=== PATIENT | male | born 1970 | race Asian ===

== ENCOUNTER → 2016-05-09 | Outpatient (CLI) | payer OTHER ==
[~2016-05-09] MED LIST: ASPI-1093 PO; METO25 PO; METO25TA6 PO; NITR0.4T27 SL; PROP10 PO
[2016-05-09 12:56] LABS: BASOPHILS # (AUTO) 0.02 K/uL (0.00-0.20); BASOPHILS % (AUTO) 0.3 % (0.0-2.0); EOSINOPHILS # (AUTO) 0.21 K/uL (0.00-0.70); EOSINOPHILS % (AUTO) 3.72 % (1.0-6.0); HEMATOCRIT 47.8 % (41-53); LYMPHOCYTES # (AUTO) 1.9 K/uL (1.0-4.8); LYMPHOCYTES % (AUTO) 34.2 % (22.0-44.0); MEAN CORPUSCULAR HEMOGLOBIN 29.8 pg (26.0-34.0); MEAN CORPUSCULAR HGB CONC 33.4 G/dL (31.0-37.0); MEAN CORPUSCULAR VOLUME 89 fL (80-100); MONOCYTES # (AUTO) 0.5 K/uL (0.1-1.0); MONOCYTES % (AUTO) 8.2 % (2.0-9.0); NEUTROPHILS % (AUTO) 53.5 % (40.0-70.0); PLATELET COUNT (AUTO) 268 K/uL (150-450); RED BLOOD CELL COUNT(AUTO) 5.37 MIL/uL (4.50-5.90); RED CELL DISTRIBUTION WIDTH 13.2 % (11.5-14.5); WHITE BLOOD COUNT (AUTO) 5.6 K/uL (4.5-11.0)
[2016-05-09 13:09] LABS: ALBUMIN 4.1 g/dL (3.4-5.0); BILIRUBIN,TOTAL 1.2 mg/dL (0.1-1.0); CALCIUM, TOTAL 9.6 mg/dL (8.8-10.5); CHOL/HDL RATIO 3.4 (4.2-7.3); CREATININE 1.44 mg/dL (0.60-1.30); POTASSIUM 5.2 mmol/L (3.5-5.1); THYROID STIMULATING HORMONE 1.64 uIU/mL (0.36-3.74); TOTAL PROTEIN, SERUM 8.3 g/dL (6.4-8.2)
== END | disposition home or self-care (01) ==
LOC: LABPV 10:06
PROVIDERS: ATTEND Internal Medicine Cardiovascular Disease
DX: E11.8 Type 2 diabetes mellitus with unspecified complications (principal); I11.0 Hypertensive heart disease with heart failure; I50.9 Heart failure, unspecified
CPT/HCPCS: 82306; 83036; 84439; 84443

== ENCOUNTER → 2016-05-19 | Outpatient (CLI) | payer OTHER ==
[2016-05-19 12:14] LABS: ALANINE AMINOTRANSFERASE 32 U/L (12-78); ALBUMIN 3.8 g/dL (3.4-5.0); ANION GAP 5 mmol/L (8-16); ASPARTATE AMINOTRANSFERASE 24 U/L (15-37); CALCIUM, TOTAL 8.5 mg/dL (8.8-10.5); CARBON DIOXIDE 32 mmol/L (22-29); CHLORIDE 105 mmol/L (98-107); CREATININE 1.03 mg/dL (0.60-1.30); GLOMERULAR FILTR. RATE CALC > 60 mL/min (>60); POTASSIUM 4.7 mmol/L (3.5-5.1); SODIUM SERUM 142 mmol/L (136-145); TOTAL PROTEIN, SERUM 7.9 g/dL (6.4-8.2); UREA NITROGEN, BLOOD 9 mg/dL (7-18)
== END | disposition home or self-care (01) ==
LOC: LABPV 11:11
PROVIDERS: ATTEND Internal Medicine Cardiovascular Disease
DX: E11.8 Type 2 diabetes mellitus with unspecified complications (principal); I10 Essential (primary) hypertension; I50.9 Heart failure, unspecified; R73.09 Other abnormal glucose

== ENCOUNTER → 2016-06-23 | Outpatient (CLI) | payer OTHER ==
[~2016-06-23] MED LIST changes: -METO25 PO; -PROP10 PO
[2016-06-23 09:52] LABS: BASOPHILS % (AUTO) 0.3 % (0.0-2.0); EOSINOPHILS % (AUTO) 7.6 % (1.0-6.0); HEMOGLOBIN 15.3 g/dL (13.5-17.5); LYMPHOCYTES # (AUTO) 2.1 K/uL (1.0-4.8); LYMPHOCYTES % (AUTO) 29.6 % (22.0-44.0); MEAN CORPUSCULAR HEMOGLOBIN 29.7 pg (26.0-34.0); MEAN CORPUSCULAR HGB CONC 32.6 G/dL (31.0-37.0); MEAN CORPUSCULAR VOLUME 91 fL (80-100); MONOCYTES # (AUTO) 0.5 K/uL (0.1-1.0); MONOCYTES % (AUTO) 6.7 % (2.0-9.0); NEUTROPHILS # (AUTO) 3.9 K/uL (1.8-7.7); NEUTROPHILS % (AUTO) 55.8 % (40.0-70.0); PLATELET COUNT (AUTO) 214 K/uL (150-450); RED BLOOD CELL COUNT(AUTO) 5.16 MIL/uL (4.50-5.90); RED CELL DISTRIBUTION WIDTH 13.4 % (11.5-14.5)
[2016-06-23 10:11] LABS: PROSTATE SPECIFIC ANTIGEN 1.54 ng/mL (0.00-4.00)
[2016-06-23 10:19] LABS: ALANINE AMINOTRANSFERASE 23 U/L (12-78); ALBUMIN 3.7 g/dL (3.4-5.0); ANION GAP 5 mmol/L (8-16); ASPARTATE AMINOTRANSFERASE 18 U/L (15-37); BILIRUBIN,TOTAL 1.5 mg/dL (0.1-1.0); CALCIUM, TOTAL 8.5 mg/dL (8.8-10.5); CARBON DIOXIDE 31 mmol/L (22-29); CHLORIDE 107 mmol/L (98-107); CREATININE 1.04 mg/dL (0.60-1.30); GLOMERULAR FILTR. RATE CALC > 60 mL/min (>60); POTASSIUM 5.3 mmol/L (3.5-5.1); SODIUM SERUM 143 mmol/L (136-145); THYROID STIMULATING HORMONE 1.02 uIU/mL (0.36-3.74); TOTAL PROTEIN, SERUM 7.7 g/dL (6.4-8.2); UREA NITROGEN, BLOOD 9 mg/dL (7-18)
[2016-06-23 10:38] LABS: HEMOGLOBIN A1C 5.2 % (4.5-6.2)
== END | disposition home or self-care (01) ==
LOC: LABPV 07:09
PROVIDERS: ATTEND Internal Medicine Cardiovascular Disease
DX: I11.0 Hypertensive heart disease with heart failure (principal); I50.9 Heart failure, unspecified; E11.8 Type 2 diabetes mellitus with unspecified complications
CPT/HCPCS: 82306; 83036; 84153; 84439; 84443

== ENCOUNTER → 2016-08-01 | Outpatient (CLI) | payer OTHER ==
[2016-08-01 12:45] LABS: HEMOGLOBIN A1C 5.3 % (4.5-6.2)
[2016-08-01 12:51] LABS: BASOPHILS % (AUTO) 0.6 % (0.0-2.0); EOSINOPHILS % (AUTO) 8.3 % (1.0-6.0); HEMATOCRIT 45.6 % (41-53); HEMOGLOBIN 14.8 g/dL (13.5-17.5); LYMPHOCYTES # (AUTO) 1.9 K/uL (1.0-4.8); LYMPHOCYTES % (AUTO) 35.9 % (22.0-44.0); MEAN CORPUSCULAR HEMOGLOBIN 29.5 pg (26.0-34.0); MEAN CORPUSCULAR HGB CONC 32.4 G/dL (31.0-37.0); MEAN CORPUSCULAR VOLUME 91 fL (80-100); MONOCYTES # (AUTO) 0.4 K/uL (0.1-1.0); MONOCYTES % (AUTO) 6.6 % (2.0-9.0); NEUTROPHILS # (AUTO) 2.6 K/uL (1.8-7.7); NEUTROPHILS % (AUTO) 48.6 % (40.0-70.0); PLATELET COUNT (AUTO) 218 K/uL (150-450); RED CELL DISTRIBUTION WIDTH 13.5 % (11.5-14.5); WHITE BLOOD COUNT (AUTO) 5.4 K/uL (4.5-11.0)
[2016-08-01 13:01] LABS: ALANINE AMINOTRANSFERASE 20 U/L (12-78); ALBUMIN 3.8 g/dL (3.4-5.0); ANION GAP 7 mmol/L (8-16); ASPARTATE AMINOTRANSFERASE 19 U/L (15-37); BILIRUBIN,TOTAL 1.4 mg/dL (0.1-1.0); CALCIUM, TOTAL 8.5 mg/dL (8.8-10.5); CARBON DIOXIDE 29 mmol/L (22-29); CHLORIDE 105 mmol/L (98-107); CHOL/HDL RATIO 3.2 (4.2-7.3); CREATININE 1.14 mg/dL (0.60-1.30); GLOMERULAR FILTR. RATE CALC > 60 mL/min (>60); SODIUM SERUM 141 mmol/L (136-145); THYROID STIMULATING HORMONE 1.34 uIU/mL (0.36-3.74); TOTAL PROTEIN, SERUM 7.6 g/dL (6.4-8.2); UREA NITROGEN, BLOOD 12 mg/dL (7-18)
== END | disposition home or self-care (01) ==
LOC: LABPV 10:12
PROVIDERS: ATTEND Internal Medicine Cardiovascular Disease
DX: I11.0 Hypertensive heart disease with heart failure (principal); I50.9 Heart failure, unspecified; E55.9 Vitamin D deficiency, unspecified; E11.8 Type 2 diabetes mellitus with unspecified complications
CPT/HCPCS: 82306; 83036; 83735; 84439; 84443

== ENCOUNTER 2016-08-16 10:06 | Emergency (ER) | payer OTHER ==
[~2016-08-16] VITALS: Ht 177.8 cm; Wt 73.6 kg
[2016-08-16] MEDS ORDERED: METO25 PO (10:11)
[2016-08-16] MEDS ORDERED: PROP10 PO (10:11)
[2016-08-16 10:49] LABS: BASOPHILS # (AUTO) 0.05 K/uL (0.00-0.20); BASOPHILS % (AUTO) 0.8 % (0.0-2.0); EOSINOPHILS # (AUTO) 0.33 K/uL (0.00-0.70); EOSINOPHILS % (AUTO) 5.84 % (1.0-6.0); HEMATOCRIT 44.4 % (41-53); HEMOGLOBIN 14.6 g/dL (13.5-17.5); LYMPHOCYTES # (AUTO) 2.1 K/uL (1.0-4.8); LYMPHOCYTES % (AUTO) 36.1 % (22.0-44.0); MEAN CORPUSCULAR HEMOGLOBIN 29.7 pg (26.0-34.0); MEAN CORPUSCULAR HGB CONC 32.8 G/dL (31.0-37.0); MEAN CORPUSCULAR VOLUME 91 fL (80-100); MONOCYTES # (AUTO) 0.5 K/uL (0.1-1.0); MONOCYTES % (AUTO) 8.1 % (2.0-9.0); NEUTROPHILS # (AUTO) 2.8 K/uL (1.8-7.7); NEUTROPHILS % (AUTO) 49.1 % (40.0-70.0); PLATELET COUNT (AUTO) 211 K/uL (150-450); RED CELL DISTRIBUTION WIDTH 13.6 % (11.5-14.5); WHITE BLOOD COUNT (AUTO) 5.7 K/uL (4.5-11.0)
[2016-08-16 11:00] LABS: PROTHROMBIN TIME 10.3 SEC (9.4-11.6)
[2016-08-16 11:03] LABS: ANION GAP 3 mmol/L (8-16); CALCIUM, TOTAL 8.6 mg/dL (8.8-10.5); CARBON DIOXIDE 32 mmol/L (22-29); CHLORIDE 104 mmol/L (98-107); CREATININE 0.95 mg/dL (0.60-1.30); GLOMERULAR FILTR. RATE CALC > 60 mL/min (>60); POTASSIUM 4.4 mmol/L (3.5-5.1); SODIUM SERUM 139 mmol/L (136-145); UREA NITROGEN, BLOOD 11 mg/dL (7-18)
[2016-08-16 11:12] LABS: B-TYPE NATRIURETIC PEPTIDE 20 pg/mL (0-100)
[2016-08-16 11:24] LABS: ALANINE AMINOTRANSFERASE 36 U/L (12-78); ALBUMIN 3.6 g/dL (3.4-5.0); ASPARTATE AMINOTRANSFERASE 23 U/L (15-37); BILIRUBIN,TOTAL 1.4 mg/dL (0.1-1.0); CREATINE KINASE MB 0.8 ng/mL (0-5); CREATINE KINASE, TOTAL 169 U/L (39-308); TOTAL PROTEIN, SERUM 7.5 g/dL (6.4-8.2)
[2016-08-16 11:32] LABS: APPEARANCE,URINE CLEAR (CLEAR); GLUCOSE, URINE (UA) NEGATIVE (NEGATIVE); KETONES,URINE NEGATIVE (NEGATIVE); LEUKOCYTE ESTERASE ,URINE NEGATIVE (NEGATIVE); OCCULT BLOOD,URINE NEGATIVE (NEGATIVE); PH,URINE 6.5 (5.0-8.0); PROTEIN,URINE NEGATIVE (NEGATIVE)
[2016-08-16 11:42] LABS: ADD UA MICROSCOPIC NO
[2016-08-16 13:02] VITALS: BP 108/68
[2016-08-16] MEDS ORDERED: ASPIRIN 81 MG CHEWABLE TABLET PO ONE (13:15)
[2016-08-16] MEDS ORDERED: NITROGLYCERIN 2% (1 GM=INCH) PACKET TP ONE (13:15)
== END 2016-08-16 13:36 | disposition left against medical advice (07) ==
LOC: EMS 10:07
DX: R07.89 Other chest pain (principal)
CPT/HCPCS: 93005; 99285

== ENCOUNTER 2016-10-24 08:29 | Emergency (ER) | payer OTHER ==
[~2016-10-24] VITALS: Ht 177.8 cm; Wt 75.0 kg
[~2016-10-24 08:29] MED LIST changes: +METO25 PO; -METO25TA6 PO; +PROP10 PO
[2016-10-24] MEDS ORDERED: PERTUSS(ACELL),DIPH,TET VAC/PF 0.5 ML VIAL IM ONE (09:00)
[2016-10-24] MEDS ORDERED: LIDOCAINE HCL 1% 10 ML VIAL INJ ONE (09:45)
[2016-10-24 10:53] VITALS: BP 116/75
== END 2016-10-24 11:41 | disposition home or self-care (01) ==
LOC: EMS 08:30
DX: S61.411A Laceration without foreign body of right hand, initial encounter (principal); I95.9 Hypotension, unspecified; Z79.4 Long term (current) use of insulin; Z79.82 Long term (current) use of aspirin; X58.XXXA Exposure to other specified factors, initial encounter; Y93.67 Activity, basketball; Y92.310 Basketball court as the place of occurrence of the external cause; Y99.8 Other external cause status
CPT/HCPCS: 12002; 73130; 90471; 90715; 99284; J3490

== ENCOUNTER → 2017-02-10 | Outpatient (CLI) | payer OTHER ==
[~2017-02-10] MED LIST changes: -ASPI-1093 PO; +ASPI-1182 PO; -METO25 PO; -NITR0.4T27 SL; +NITR0.4T50 SL; -PROP10 PO; +PROP10TA73 PO
[2017-02-10 12:00] LABS: BASOPHILS # (AUTO) 0.02 K/uL (0.00-0.20); BASOPHILS % (AUTO) 0.3 % (0.0-2.0); EOSINOPHILS # (AUTO) 0.47 K/uL (0.00-0.70); EOSINOPHILS % (AUTO) 7.72 % (1.0-6.0); HEMATOCRIT 45.6 % (41-53); LYMPHOCYTES # (AUTO) 2.1 K/uL (1.0-4.8); MEAN CORPUSCULAR HEMOGLOBIN 30.5 pg (26.0-34.0); MEAN CORPUSCULAR HGB CONC 32.8 G/dL (31.0-37.0); MEAN CORPUSCULAR VOLUME 93 fL (80-100); MONOCYTES # (AUTO) 0.4 K/uL (0.1-1.0); MONOCYTES % (AUTO) 6.1 % (2.0-9.0); NEUTROPHILS # (AUTO) 3.2 K/uL (1.8-7.7); NEUTROPHILS % (AUTO) 51.8 % (40.0-70.0); PLATELET COUNT (AUTO) 202 K/uL (150-450); RED BLOOD CELL COUNT(AUTO) 4.91 MIL/uL (4.50-5.90); RED CELL DISTRIBUTION WIDTH 13.4 % (11.5-14.5)
[2017-02-10 12:18] LABS: HEMOGLOBIN A1C 5.2 % (4.5-6.2)
[2017-02-10 12:35] LABS: ALANINE AMINOTRANSFERASE 25 U/L (12-78); ALBUMIN 4.1 g/dL (3.4-5.0); ALKALINE PHOSPHATASE 73 U/L (46-116); ANION GAP 6 mmol/L (8-16); ASPARTATE AMINOTRANSFERASE 22 U/L (15-37); BILIRUBIN,TOTAL 1.5 mg/dL (0.1-1.0); CALCIUM, TOTAL 8.8 mg/dL (8.8-10.5); CARBON DIOXIDE 30 mmol/L (22-29); CHLORIDE 105 mmol/L (98-107); CHOL/HDL RATIO 3.4 (4.2-7.3); CHOLESTEROL 209 mg/dL (131-200); CREATININE 0.96 mg/dL (0.60-1.30); FREE T4 (FREE THYROXINE) 1.02 ng/dL (0.76-1.46); GLOMERULAR FILTR. RATE CALC > 60 mL/min (>60); GLUCOSE,RANDOM 93 mg/dL (70-110); HDL CHOLESTEROL 61 mg/dL (40-60); LDL CHOL (CALC.) 139 mg/dL (0-130); POTASSIUM 4.6 mmol/L (3.5-5.1); SODIUM SERUM 141 mmol/L (136-145); TOTAL PROTEIN, SERUM 7.7 g/dL (6.4-8.2); TRIGLYCERIDES 44 mg/dL (15-150); UREA NITROGEN, BLOOD 13 mg/dL (7-18)
[2017-02-10 12:40] LABS: PROSTATE SPECIFIC ANTIGEN 1.57 ng/mL (0.00-4.00)
== END | disposition home or self-care (01) ==
LOC: LABPV 09:40
PROVIDERS: ATTEND Internal Medicine Cardiovascular Disease
DX: I11.0 Hypertensive heart disease with heart failure (principal); I50.9 Heart failure, unspecified; E11.65 Type 2 diabetes mellitus with hyperglycemia; E55.9 Vitamin D deficiency, unspecified
CPT/HCPCS: 82248; 83036; 84153; 84439; 84443

== ENCOUNTER → 2017-04-16 | Outpatient (CLI) | payer OTHER ==
[2017-04-16 13:08] LABS: BASOPHILS # (AUTO) 0.02 K/uL (0.00-0.20); BASOPHILS % (AUTO) 0.3 % (0.0-2.0); EOSINOPHILS # (AUTO) 0.37 K/uL (0.00-0.70); EOSINOPHILS % (AUTO) 6.22 % (1.0-6.0); HEMATOCRIT 43.9 % (41-53); HEMOGLOBIN 14.9 g/dL (13.5-17.5); LYMPHOCYTES # (AUTO) 2.2 K/uL (1.0-4.8); LYMPHOCYTES % (AUTO) 36.2 % (22.0-44.0); MEAN CORPUSCULAR HEMOGLOBIN 30.3 pg (26.0-34.0); MEAN CORPUSCULAR HGB CONC 34.1 G/dL (31.0-37.0); MEAN CORPUSCULAR VOLUME 89 fL (80-100); MONOCYTES # (AUTO) 0.5 K/uL (0.1-1.0); MONOCYTES % (AUTO) 8.7 % (2.0-9.0); NEUTROPHILS # (AUTO) 2.9 K/uL (1.8-7.7); NEUTROPHILS % (AUTO) 48.6 % (40.0-70.0); PLATELET COUNT (AUTO) 200 K/uL (150-450); RED BLOOD CELL COUNT(AUTO) 4.93 MIL/uL (4.50-5.90); RED CELL DISTRIBUTION WIDTH 12.9 % (11.5-14.5)
[2017-04-16 13:19] LABS: ALANINE AMINOTRANSFERASE 38 U/L (12-78); ALBUMIN 3.7 g/dL (3.4-5.0); ALKALINE PHOSPHATASE 76 U/L (46-116); ANION GAP 5 mmol/L (8-16); ASPARTATE AMINOTRANSFERASE 22 U/L (15-37); BILIRUBIN,TOTAL 1.6 mg/dL (0.1-1.0); CALCIUM, TOTAL 8.6 mg/dL (8.8-10.5); CARBON DIOXIDE 31 mmol/L (22-29); CHLORIDE 104 mmol/L (98-107); CHOL/HDL RATIO 3.5 (4.2-7.3); CHOLESTEROL 204 mg/dL (131-200); GLOMERULAR FILTR. RATE CALC > 60 mL/min (>60); GLUCOSE,RANDOM 74 mg/dL (70-110); HDL CHOLESTEROL 59 mg/dL (40-60); LDL CHOL (CALC.) 124 mg/dL (0-130); POTASSIUM 4.3 mmol/L (3.5-5.1); SODIUM SERUM 140 mmol/L (136-145); THYROID STIMULATING HORMONE 0.97 uIU/mL (0.36-3.74); TOTAL PROTEIN, SERUM 7.7 g/dL (6.4-8.2); TRIGLYCERIDES 106 mg/dL (15-150); UREA NITROGEN, BLOOD 16 mg/dL (7-18)
[2017-04-16 14:12] LABS: HEMOGLOBIN A1C 5.2 % (4.5-6.2)
== END | disposition home or self-care (01) ==
LOC: LABPV 12:13
PROVIDERS: ATTEND Internal Medicine Cardiovascular Disease
DX: I11.0 Hypertensive heart disease with heart failure (principal); I50.9 Heart failure, unspecified; E11.8 Type 2 diabetes mellitus with unspecified complications; E55.9 Vitamin D deficiency, unspecified
CPT/HCPCS: 82306; 83036; 83735; 84436; 84443

== ENCOUNTER → 2017-07-16 | Outpatient (CLI) | payer OTHER | END | disposition home or self-care (01) | LOC: RADMN 13:18 | PROVIDERS: ATTEND Internal Medicine | DX: Z87.820 Personal history of traumatic brain injury (principal) | CPT/HCPCS: 70450 ==

== ENCOUNTER → 2017-07-23 | Outpatient (CLI) | payer OTHER ==
[2017-07-23 16:11] LABS: BASOPHILS % (AUTO) 0.4 % (0.0-2.0); EOSINOPHILS % (AUTO) 4.2 % (1.0-6.0); HEMATOCRIT 43.5 % (41-53); HEMOGLOBIN 14.7 g/dL (13.5-17.5); LYMPHOCYTES # (AUTO) 2.4 K/uL (1.0-4.8); LYMPHOCYTES % (AUTO) 44.1 % (22.0-44.0); MEAN CORPUSCULAR HEMOGLOBIN 30.7 pg (26.0-34.0); MEAN CORPUSCULAR HGB CONC 33.8 G/dL (31.0-37.0); MEAN CORPUSCULAR VOLUME 91 fL (80-100); MONOCYTES # (AUTO) 0.5 K/uL (0.1-1.0); MONOCYTES % (AUTO) 9.3 % (2.0-9.0); NEUTROPHILS # (AUTO) 2.2 K/uL (1.8-7.7); PLATELET COUNT (AUTO) 215 K/uL (150-450); RED CELL DISTRIBUTION WIDTH 13.5 % (11.5-14.5)
[2017-07-23 17:27] LABS: ALANINE AMINOTRANSFERASE 34 U/L (12-78); ALBUMIN 3.6 g/dL (3.4-5.0); ALKALINE PHOSPHATASE 76 U/L (46-116); ANION GAP 6 mmol/L (8-16); ASPARTATE AMINOTRANSFERASE 23 U/L (15-37); CARBON DIOXIDE 29 mmol/L (22-29); CHLORIDE 103 mmol/L (98-107); CREATININE 1.18 mg/dL (0.60-1.30); GLOMERULAR FILTR. RATE CALC > 60 mL/min (>60); GLUCOSE,RANDOM 87 mg/dL (70-110); SODIUM SERUM 138 mmol/L (136-145); TOTAL PROTEIN, SERUM 7.5 g/dL (6.4-8.2); UREA NITROGEN, BLOOD 18 mg/dL (7-18)
[2017-07-23 17:35] LABS: C-REACTIVE PROTEIN QUANT < 0.05 mg/dL (0.00-0.30)
[2017-07-23 17:38] LABS: ERYTHROCYTE SEDIMENTATION RATE 1 MM/HR (0-15)
== END | disposition home or self-care (01) ==
LOC: LABPV 15:29
PROVIDERS: ATTEND Internal Medicine Infectious Disease
DX: R51 Headache (principal); Z79.899 Other long term (current) drug therapy
CPT/HCPCS: 85651; 86140

== ENCOUNTER → 2017-07-27 | Outpatient (CLI) | payer OTHER ==
[~2017-07-27] MED LIST changes: +GADOBUTROL 1 MMOL/ML 10 ML VIAL IVP ONE
== END | disposition home or self-care (01) ==
LOC: RADMN 15:02
PROVIDERS: ATTEND Internal Medicine
DX: G93.89 Other specified disorders of brain (principal); G44.319 Acute post-traumatic headache, not intractable
CPT/HCPCS: 70553; A9585

== ENCOUNTER → 2017-08-03 | Outpatient (CLI) | payer OTHER ==
[~2017-08-03] MED LIST changes: -GADOBUTROL 1 MMOL/ML 10 ML VIAL IVP ONE
[2017-08-03 09:34] LABS: BASOPHILS % (AUTO) 0.5 % (0.0-2.0); EOSINOPHILS % (AUTO) 4.6 % (1.0-6.0); HEMATOCRIT 48.1 % (41-53); HEMOGLOBIN 16.4 g/dL (13.5-17.5); LYMPHOCYTES # (AUTO) 1.8 K/uL (1.0-4.8); LYMPHOCYTES % (AUTO) 39.5 % (22.0-44.0); MEAN CORPUSCULAR HEMOGLOBIN 30.9 pg (26.0-34.0); MEAN CORPUSCULAR HGB CONC 34.1 G/dL (31.0-37.0); MEAN CORPUSCULAR VOLUME 91 fL (80-100); MONOCYTES # (AUTO) 0.4 K/uL (0.1-1.0); MONOCYTES % (AUTO) 8.7 % (2.0-9.0); NEUTROPHILS # (AUTO) 2.2 K/uL (1.8-7.7); NEUTROPHILS % (AUTO) 46.7 % (40.0-70.0); PLATELET COUNT (AUTO) 230 K/uL (150-450); RED BLOOD CELL COUNT(AUTO) 5.31 MIL/uL (4.50-5.90); RED CELL DISTRIBUTION WIDTH 13.6 % (11.5-14.5)
[2017-08-03 09:59] LABS: ALANINE AMINOTRANSFERASE 38 U/L (12-78); ALBUMIN 4.2 g/dL (3.4-5.0); ALKALINE PHOSPHATASE 87 U/L (46-116); ANION GAP 5 mmol/L (8-16); ASPARTATE AMINOTRANSFERASE 27 U/L (15-37); BILIRUBIN,TOTAL 1.7 mg/dL (0.1-1.0); CARBON DIOXIDE 31 mmol/L (22-29); CHLORIDE 102 mmol/L (98-107); CHOL/HDL RATIO 3.3 (4.2-7.3); CHOLESTEROL 248 mg/dL (131-200); CREATININE 0.97 mg/dL (0.60-1.30); GLOMERULAR FILTR. RATE CALC > 60 mL/min (>60); GLUCOSE,RANDOM 99 mg/dL (70-110); HDL CHOLESTEROL 75 mg/dL (40-60); LDL CHOL (CALC.) 158 mg/dL (0-130); POTASSIUM 4.8 mmol/L (3.5-5.1); SODIUM SERUM 138 mmol/L (136-145); THYROID STIMULATING HORMONE 1.39 uIU/mL (0.36-3.74); TOTAL PROTEIN, SERUM 8.3 g/dL (6.4-8.2); TRIGLYCERIDES 75 mg/dL (15-150); UREA NITROGEN, BLOOD 13 mg/dL (7-18)
== END | disposition home or self-care (01) ==
LOC: LABPV 07:35
PROVIDERS: ATTEND Internal Medicine Cardiovascular Disease
DX: I11.0 Hypertensive heart disease with heart failure (principal); I50.9 Heart failure, unspecified; E11.8 Type 2 diabetes mellitus with unspecified complications; E55.9 Vitamin D deficiency, unspecified; D56.5 Hemoglobin E-beta thalassemia
CPT/HCPCS: 82248; 82306; 83036; 83735; 84436; 84443

== ENCOUNTER → 2017-08-14 | Outpatient (CLI) | payer OTHER | END | disposition home or self-care (01) | LOC: RADMN 16:03 | PROVIDERS: ATTEND Internal Medicine | DX: M79.89 Other specified soft tissue disorders (principal) ==

== ENCOUNTER → 2017-09-18 | Outpatient (CLI) | payer OTHER | END | disposition home or self-care (01) | LOC: RADMN 13:14 | PROVIDERS: ATTEND Internal Medicine | DX: S93.492A Sprain of other ligament of left ankle, initial encounter (principal); M25.472 Effusion, left ankle; X58.XXXA Exposure to other specified factors, initial encounter; Y93.89 Activity, other specified; Y92.89 Other specified places as the place of occurrence of the external cause; Y99.8 Other external cause status | CPT/HCPCS: 73721 ==

== ENCOUNTER → 2017-10-27 | Outpatient (CLI) | payer OTHER ==
[2017-10-28 07:40] LABS: ALANINE AMINOTRANSFERASE 34 U/L (12-78); ALBUMIN 3.8 g/dL (3.4-5.0); ALKALINE PHOSPHATASE 84 U/L (46-116); ANION GAP 3 mmol/L (8-16); ASPARTATE AMINOTRANSFERASE 19 U/L (15-37); BILIRUBIN,TOTAL 1.2 mg/dL (0.1-1.0); CALCIUM, TOTAL 8.6 mg/dL (8.8-10.5); CARBON DIOXIDE 32 mmol/L (22-29); CHLORIDE 104 mmol/L (98-107); CHOL/HDL RATIO 2.2 (4.2-7.3); CHOLESTEROL 132 mg/dL (131-200); CREATININE 0.96 mg/dL (0.60-1.30); GLOMERULAR FILTR. RATE CALC > 60 mL/min (>60); GLUCOSE,RANDOM 94 mg/dL (70-110); HDL CHOLESTEROL 59 mg/dL (40-60); LDL CHOL (CALC.) 63 mg/dL (0-130); SODIUM SERUM 139 mmol/L (136-145); TOTAL PROTEIN, SERUM 7.4 g/dL (6.4-8.2); TRIGLYCERIDES 52 mg/dL (15-150); UREA NITROGEN, BLOOD 13 mg/dL (7-18)
== END | disposition home or self-care (01) ==
LOC: LABPV 11:33
PROVIDERS: ATTEND Internal Medicine Cardiovascular Disease
DX: I11.0 Hypertensive heart disease with heart failure (principal); I50.9 Heart failure, unspecified; E11.8 Type 2 diabetes mellitus with unspecified complications; E55.9 Vitamin D deficiency, unspecified; D56.5 Hemoglobin E-beta thalassemia

== ENCOUNTER 2017-11-18 10:10 | Day surgery (SDC) | payer OTHER ==
[~2017-11-18 10:10] MED LIST changes: +COMP25S PR; +DICLOFENAC SODIUM 0.1% 2.5 ML OPHTHALMIC SOLUTION OS ONE; +HYPR15DR23 OS; +MOXIFLOXACIN HCL 0.5% 3 ML OPHTHALMIC SOLUTION OS ONE; +MitoMYcin 0.2 MG/VIAL KIT FOR OPHTHALMIC USE OS ONE; +RINGERS SOLUTION,LACTATED 500 ML IV ONE; +ROSU5TAB PO
[2017-11-18] MEDS ORDERED: RINGERS SOLUTION,LACTATED 500 ML IV ONE (11:32)
[2017-11-18] MEDS ORDERED: DICLOFENAC SODIUM 0.1% 2.5 ML OPHTHALMIC SOLUTION ONE (11:43)
[2017-11-18] MEDS ORDERED: MOXIFLOXACIN HCL 0.5% 3 ML OPHTHALMIC SOLUTION ONE (11:43)
[2017-11-18] MEDS ORDERED: PHENYLEPHRINE HCL 2.5% 2 ML OPHTHALMIC SOLUTION ONE (11:43)
[2017-11-18] MEDS ORDERED: TROPICAMIDE 1% 2 ML OPHTHALMIC SOLUTION ONE (11:43)
[2017-11-18] MEDS ORDERED: FentaNYL CITRATE-PF 100 MCG/2 ML VIAL IVP ONE (12:00)
[2017-11-18] MEDS ORDERED: MIDAZOLAM HCL 2 MG/2 ML VIAL IVP ONE (12:00)
[2017-11-18] MEDS ORDERED: TETRACAINE HCL VISCOUS 0.5% 0.6 ML OPHTHALMIC SOLUTION ONE (21:51)
[2017-11-18] MEDS ORDERED: NEOMYCIN/POLYMYXIN B/DEXAMETH 3.5 GM OPHTHALMIC OINTMENT ONE (21:51)
[2017-11-18] MEDS ORDERED: POVIDONE-IODINE 10% 15 ML SOLUTION UD ONE (21:51)
[2017-11-18] MEDS ORDERED: LIDOCAINE HCL 2%/EPI 1:200,000/PF 10 ML VIAL ONE (21:51)
[2017-11-18] MEDS ORDERED: BUPIVACAINE HCL/PF 0.75% 10 ML OPHTHALMIC SOLUTION ONE (21:51)
== END 2017-11-18 17:05 | disposition home or self-care (01) ==
LOC: SURGERY 10:10
PROVIDERS: ATTEND Specialist
DX: H11.052 Peripheral pterygium, progressive, left eye (principal); I11.0 Hypertensive heart disease with heart failure; I50.9 Heart failure, unspecified; E11.9 Type 2 diabetes mellitus without complications; E55.9 Vitamin D deficiency, unspecified; G43.909 Migraine, unspecified, not intractable, without status migrainosus; Z79.4 Long term (current) use of insulin; Z88.4 Allergy status to anesthetic agent; Z72.89 Other problems related to lifestyle; Z79.82 Long term (current) use of aspirin; Z98.890 Other specified postprocedural states; Z79.899 Other long term (current) drug therapy
CPT/HCPCS: 65426; 88304; 93005; C1768; J2250; J3010; J3490; J7120

== ENCOUNTER 2017-12-08 08:11 | Day surgery (SDC) | payer OTHER ==
[~2017-12-08] VITALS: Ht 177.8 cm; Wt 75.0 kg
[~2017-12-08 08:11] MED LIST changes: -COMP25S PR; -DICLOFENAC SODIUM 0.1% 2.5 ML OPHTHALMIC SOLUTION OS ONE; -HYPR15DR23 OS; -MOXIFLOXACIN HCL 0.5% 3 ML OPHTHALMIC SOLUTION OS ONE; -MitoMYcin 0.2 MG/VIAL KIT FOR OPHTHALMIC USE OS ONE; -PROP10TA73 PO; -RINGERS SOLUTION,LACTATED 500 ML IV ONE
[2017-12-08 08:44] LABS: ANION GAP 5 mmol/L (8-16); CALCIUM, TOTAL 8.6 mg/dL (8.8-10.5); CARBON DIOXIDE 31 mmol/L (22-29); CHLORIDE 106 mmol/L (98-107); CREATININE 1.03 mg/dL (0.60-1.30); GLOMERULAR FILTR. RATE CALC > 60 mL/min (>60); GLUCOSE,RANDOM 104 mg/dL (70-110); POTASSIUM 4.2 mmol/L (3.5-5.1); SODIUM SERUM 142 mmol/L (136-145); UREA NITROGEN, BLOOD 8 mg/dL (7-18)
[2017-12-08] MEDS ORDERED: METOPROLOL TARTRATE 50 MG TABLET PO PRN (09:00)
[2017-12-08] MEDS ORDERED: 0.9% SODIUM CHLORIDE 10 ML SYRINGE IVP PRN (09:00)
[2017-12-08] MEDS ORDERED: IOVERSOL 350 MG/ML 150 ML VIAL ONE (10:43)
[2017-12-08] MEDS ORDERED: METOPROLOL TARTRATE 5 MG/5 ML VIAL ONE (10:54)
[2017-12-08] MEDS ORDERED: NITROGLYCERIN 400 MCG/SUBLINGUAL SPRAY 4.9 GM BOTTLE SL ONE (10:54)
== END 2017-12-08 11:35 | disposition home or self-care (01) ==
LOC: SURGERY 08:11 → EDSTATUS 10:30 → SURGERY 11:35
PROVIDERS: ATTEND Internal Medicine Cardiovascular Disease
DX: I20.8 Other forms of angina pectoris (principal); I49.5 Sick sinus syndrome; I25.89 Other forms of chronic ischemic heart disease; I34.1 Nonrheumatic mitral (valve) prolapse; E78.00 Pure hypercholesterolemia, unspecified; I11.0 Hypertensive heart disease with heart failure; I50.9 Heart failure, unspecified; G43.909 Migraine, unspecified, not intractable, without status migrainosus; E11.9 Type 2 diabetes mellitus without complications; E55.9 Vitamin D deficiency, unspecified; Z86.718 Personal history of other venous thrombosis and embolism; Z79.4 Long term (current) use of insulin; Z79.01 Long term (current) use of anticoagulants; Z79.82 Long term (current) use of aspirin; Z72.89 Other problems related to lifestyle; Z87.820 Personal history of traumatic brain injury; Z98.890 Other specified postprocedural states; Z79.899 Other long term (current) drug therapy; Z82.49 Family history of ischemic heart disease and other diseases of the circulatory system
CPT/HCPCS: 36415; 75574; 80048; Q9967; J3490

== ENCOUNTER → 2018-04-02 | Outpatient (CLI) | payer OTHER ==
[2018-04-02 09:52] LABS: BASOPHILS % (AUTO) 0.6 % (0.0-2.0); EOSINOPHILS % (AUTO) 7.4 % (1.0-6.0); HEMATOCRIT 45.9 % (41-53); HEMOGLOBIN 15.8 g/dL (13.5-17.5); LYMPHOCYTES # (AUTO) 1.8 K/uL (1.0-4.8); MEAN CORPUSCULAR HEMOGLOBIN 31.2 pg (26.0-34.0); MEAN CORPUSCULAR HGB CONC 34.4 G/dL (31.0-37.0); MEAN CORPUSCULAR VOLUME 91 fL (80-100); MONOCYTES # (AUTO) 0.4 K/uL (0.1-1.0); MONOCYTES % (AUTO) 8.7 % (2.0-9.0); NEUTROPHILS # (AUTO) 2.4 K/uL (1.8-7.7); NEUTROPHILS % (AUTO) 47.3 % (40.0-70.0); PLATELET COUNT (AUTO) 214 K/uL (150-450); RED BLOOD CELL COUNT(AUTO) 5.06 MIL/uL (4.50-5.90); RED CELL DISTRIBUTION WIDTH 13.6 % (11.5-14.5)
[2018-04-02 10:04] LABS: HEMOGLOBIN A1C 5.1 % (4.5-6.2)
[2018-04-02 10:18] LABS: ALANINE AMINOTRANSFERASE 33 U/L (12-78); ALBUMIN 3.9 g/dL (3.4-5.0); ALKALINE PHOSPHATASE 83 U/L (46-116); ANION GAP 4 mmol/L (8-16); ASPARTATE AMINOTRANSFERASE 27 U/L (15-37); BILIRUBIN,TOTAL 1.7 mg/dL (0.1-1.0); CALCIUM, TOTAL 8.9 mg/dL (8.8-10.5); CARBON DIOXIDE 32 mmol/L (22-29); CHLORIDE 104 mmol/L (98-107); CHOL/HDL RATIO 3.6 (4.2-7.3); CHOLESTEROL 219 mg/dL (131-200); CREATININE 1.02 mg/dL (0.60-1.30); FREE T4 (FREE THYROXINE) 0.98 ng/dL (0.76-1.46); GLOMERULAR FILTR. RATE CALC > 60 mL/min (>60); GLUCOSE,RANDOM 99 mg/dL (70-110); HDL CHOLESTEROL 61 mg/dL (40-60); LDL CHOL (CALC.) 144 mg/dL (0-130); POTASSIUM 5.1 mmol/L (3.5-5.1); SODIUM SERUM 140 mmol/L (136-145); THYROID STIMULATING HORMONE 1.24 uIU/mL (0.36-3.74); TOTAL PROTEIN, SERUM 7.7 g/dL (6.4-8.2); TRIGLYCERIDES 70 mg/dL (15-150); UREA NITROGEN, BLOOD 12 mg/dL (7-18)
[2018-04-02 10:28] LABS: PROSTATE SPECIFIC ANTIGEN 1.48 ng/mL (0.00-4.00)
== END | disposition home or self-care (01) ==
LOC: LABPV 07:50
PROVIDERS: ATTEND Internal Medicine Cardiovascular Disease
DX: E55.9 Vitamin D deficiency, unspecified (principal); I11.0 Hypertensive heart disease with heart failure; I50.9 Heart failure, unspecified; E11.9 Type 2 diabetes mellitus without complications; D56.5 Hemoglobin E-beta thalassemia
CPT/HCPCS: 82306; 83036; 83735; 84153; 84439; 84443

== ENCOUNTER 2018-06-01 02:19 | Emergency (ER) | payer OTHER ==
[~2018-06-01] VITALS: Ht 177.8 cm; Wt 75.9 kg
[2018-06-01] MEDS ORDERED: ONDANSETRON HCL 4 MG/2 ML VIAL IVP ONE (03:15)
[2018-06-01] MEDS ORDERED: SODIUM CHLORIDE 0.9% 1,000 ML IV ONE (03:15)
[2018-06-01 03:35] LABS: BASOPHILS % (AUTO) 0.1 % (0.0-2.0); HEMATOCRIT 46.4 % (41-53); HEMOGLOBIN 15.9 g/dL (13.5-17.5); LYMPHOCYTES # (AUTO) 0.5 K/uL (1.0-4.8); LYMPHOCYTES % (AUTO) 5.1 % (22.0-44.0); MEAN CORPUSCULAR HEMOGLOBIN 30.7 pg (26.0-34.0); MEAN CORPUSCULAR HGB CONC 34.2 G/dL (31.0-37.0); MEAN CORPUSCULAR VOLUME 90 fL (80-100); MONOCYTES # (AUTO) 0.5 K/uL (0.1-1.0); MONOCYTES % (AUTO) 5.7 % (2.0-9.0); PLATELET COUNT (AUTO) 213 K/uL (150-450); RED BLOOD CELL COUNT(AUTO) 5.18 MIL/uL (4.50-5.90); RED CELL DISTRIBUTION WIDTH 13.2 % (11.5-14.5)
[2018-06-01 03:36] LABS: ANION GAP 11 mmol/L (8-16); CALCIUM, TOTAL 8.7 mg/dL (8.8-10.5); CARBON DIOXIDE 26 mmol/L (22-29); CHLORIDE 103 mmol/L (98-107); GLOMERULAR FILTR. RATE CALC > 60 mL/min (>60); GLUCOSE,RANDOM 111 mg/dL (70-110); NEUTROPHILS % (AUTO) 88.1 % (40.0-70.0); POTASSIUM 3.7 mmol/L (3.5-5.1); SODIUM SERUM 140 mmol/L (136-145); UREA NITROGEN, BLOOD 15 mg/dL (7-18)
[2018-06-01 03:44] LABS: ALANINE AMINOTRANSFERASE 54 U/L (12-78); ALBUMIN 3.8 g/dL (3.4-5.0); ALKALINE PHOSPHATASE 93 U/L (46-116); ASPARTATE AMINOTRANSFERASE 36 U/L (15-37); BILIRUBIN,TOTAL 3.1 mg/dL (0.1-1.0); LIPASE 117 U/L (73-393); TOTAL PROTEIN, SERUM 7.8 g/dL (6.4-8.2)
[2018-06-01 04:17] VITALS: BP 119/71
== END 2018-06-01 04:21 | disposition home or self-care (01) ==
LOC: EMS 02:20
DX: K52.9 Noninfective gastroenteritis and colitis, unspecified (principal); E78.00 Pure hypercholesterolemia, unspecified; I25.2 Old myocardial infarction
CPT/HCPCS: 36415; 80053; 83690; 85025; 96361; 96374; 99283; J2405; J7030

== ENCOUNTER → 2018-06-15 | Outpatient (CLI) | payer OTHER ==
[2018-06-15 08:50] LABS: BASOPHILS % (AUTO) 0.6 % (0.0-2.0); EOSINOPHILS % (AUTO) 7.1 % (1.0-6.0); HEMATOCRIT 45.5 % (41-53); HEMOGLOBIN 15.3 g/dL (13.5-17.5); LYMPHOCYTES # (AUTO) 1.5 K/uL (1.0-4.8); LYMPHOCYTES % (AUTO) 33.6 % (22.0-44.0); MEAN CORPUSCULAR HEMOGLOBIN 30.7 pg (26.0-34.0); MEAN CORPUSCULAR HGB CONC 33.6 G/dL (31.0-37.0); MEAN CORPUSCULAR VOLUME 91 fL (80-100); MONOCYTES # (AUTO) 0.4 K/uL (0.1-1.0); MONOCYTES % (AUTO) 8.7 % (2.0-9.0); NEUTROPHILS # (AUTO) 2.2 K/uL (1.8-7.7); PLATELET COUNT (AUTO) 251 K/uL (150-450); RED BLOOD CELL COUNT(AUTO) 4.99 MIL/uL (4.50-5.90); RED CELL DISTRIBUTION WIDTH 13.3 % (11.5-14.5)
[2018-06-15 09:03] LABS: ALANINE AMINOTRANSFERASE 25 U/L (12-78); ALBUMIN 3.6 g/dL (3.4-5.0); ALKALINE PHOSPHATASE 84 U/L (46-116); ANION GAP 4 mmol/L (8-16); ASPARTATE AMINOTRANSFERASE 23 U/L (15-37); BILIRUBIN,TOTAL 1.8 mg/dL (0.1-1.0); CALCIUM, TOTAL 8.7 mg/dL (8.8-10.5); CARBON DIOXIDE 30 mmol/L (22-29); CHLORIDE 104 mmol/L (98-107); CHOL/HDL RATIO 2.4 (4.2-7.3); CHOLESTEROL 127 mg/dL (131-200); CREATININE 1.04 mg/dL (0.60-1.30); FREE T4 (FREE THYROXINE) 1.05 ng/dL (0.76-1.46); GLOMERULAR FILTR. RATE CALC > 60 mL/min (>60); GLUCOSE,RANDOM 98 mg/dL (70-110); HDL CHOLESTEROL 52 mg/dL (40-60); LDL CHOL (CALC.) 64 mg/dL (0-130); POTASSIUM 4.2 mmol/L (3.5-5.1); SODIUM SERUM 138 mmol/L (136-145); THYROID STIMULATING HORMONE 0.94 uIU/mL (0.36-3.74); TOTAL PROTEIN, SERUM 7.5 g/dL (6.4-8.2); TRIGLYCERIDES 54 mg/dL (15-150); UREA NITROGEN, BLOOD 11 mg/dL (7-18)
[2018-06-15 09:18] LABS: HEMOGLOBIN A1C 5.1 % (4.5-6.2)
== END | disposition home or self-care (01) ==
LOC: LABPV 07:43
PROVIDERS: ATTEND Internal Medicine Cardiovascular Disease
DX: E55.9 Vitamin D deficiency, unspecified (principal); I11.0 Hypertensive heart disease with heart failure; I50.9 Heart failure, unspecified; E11.9 Type 2 diabetes mellitus without complications; D56.5 Hemoglobin E-beta thalassemia
CPT/HCPCS: 82306; 83036; 83735; 84439; 84443

== ENCOUNTER 2018-08-09 00:27 | Emergency (ER) | payer OTHER ==
[~2018-08-09] VITALS: Ht 177.8 cm; Wt 73.6 kg
[2018-08-09 01:12] LABS: BASOPHILS % (AUTO) 0.5 % (0.0-2.0); EOSINOPHILS % (AUTO) 4.1 % (1.0-6.0); HEMATOCRIT 44.8 % (41-53); HEMOGLOBIN 14.9 g/dL (13.5-17.5); LYMPHOCYTES # (AUTO) 1.5 K/uL (1.0-4.8); LYMPHOCYTES % (AUTO) 20.5 % (22.0-44.0); MEAN CORPUSCULAR HEMOGLOBIN 30.4 pg (26.0-34.0); MEAN CORPUSCULAR HGB CONC 33.4 G/dL (31.0-37.0); MEAN CORPUSCULAR VOLUME 91 fL (80-100); MONOCYTES # (AUTO) 0.7 K/uL (0.1-1.0); MONOCYTES % (AUTO) 9.5 % (2.0-9.0); NEUTROPHILS # (AUTO) 4.9 K/uL (1.8-7.7); NEUTROPHILS % (AUTO) 65.4 % (40.0-70.0); PLATELET COUNT (AUTO) 194 K/uL (150-450); RED BLOOD CELL COUNT(AUTO) 4.92 MIL/uL (4.50-5.90); RED CELL DISTRIBUTION WIDTH 13.2 % (11.5-14.5)
[2018-08-09] MEDS ORDERED: ONDANSETRON HCL 4 MG/2 ML VIAL IVP ONE (01:15)
[2018-08-09] MEDS ORDERED: PB/HYOSCY/ATR/SCOP/LIDO/MAALOX 55 ML BOTTLE PO ONE (01:15)
[2018-08-09 01:16] LABS: APPEARANCE,URINE CLEAR (CLEAR); BILIRUBIN,URINE NEGATIVE (NEGATIVE); GLUCOSE, URINE (UA) NEGATIVE (NEGATIVE); KETONES,URINE NEGATIVE (NEGATIVE); LEUKOCYTE ESTERASE ,URINE NEGATIVE (NEGATIVE); NITRATE,URINE NEGATIVE (NEGATIVE); OCCULT BLOOD,URINE SMALL (NEGATIVE); PH,URINE 5.5 (5.0-8.0); PROTEIN,URINE NEGATIVE (NEGATIVE)
[2018-08-09 01:17] LABS: ANION GAP 6 mmol/L (8-16); CALCIUM, TOTAL 8.6 mg/dL (8.8-10.5); CARBON DIOXIDE 28 mmol/L (22-29); CHLORIDE 105 mmol/L (98-107); CREATININE 0.99 mg/dL (0.60-1.30); GLOMERULAR FILTR. RATE CALC > 60 mL/min (>60); GLUCOSE,RANDOM 100 mg/dL (70-110); POTASSIUM 3.9 mmol/L (3.5-5.1); SODIUM SERUM 139 mmol/L (136-145); UREA NITROGEN, BLOOD 10 mg/dL (7-18)
[2018-08-09 01:23] LABS: ALANINE AMINOTRANSFERASE 29 U/L (12-78); ALBUMIN 3.5 g/dL (3.4-5.0); ALKALINE PHOSPHATASE 79 U/L (46-116); ASPARTATE AMINOTRANSFERASE 26 U/L (15-37); BILIRUBIN,TOTAL 0.7 mg/dL (0.1-1.0); LIPASE 141 U/L (73-393)
[2018-08-09 01:41] LABS: BACTERIA,URINE None Seen /HPF (None Seen); RBC,URINE 0-2 /HPF (0-2); WBC,URINE None Seen /HPF (0-5)
[2018-08-09 05:07] VITALS: BP 110/65
== END 2018-08-09 05:09 | disposition home or self-care (01) ==
LOC: EMS 00:29
DX: R10.13 Epigastric pain (principal); R11.0 Nausea; E78.00 Pure hypercholesterolemia, unspecified; I25.2 Old myocardial infarction
CPT/HCPCS: 36415; 74022; 80053; 81001; 83690; 84484; 85025; 93005; 96374; 99285; J2405

== ENCOUNTER → 2018-09-16 | Outpatient (CLI) | payer OTHER ==
[~2018-09-16] MED LIST changes: -ASPI-1182 PO; -NITR0.4T50 SL
[2018-09-16 08:40] LABS: CHOL/HDL RATIO 3.3 (4.2-7.3)
[2018-09-16 08:56] LABS: PROSTATE SPECIFIC ANTIGEN 1.38 ng/mL (0.00-4.00)
== END | disposition home or self-care (01) ==
LOC: LABPV 07:12
PROVIDERS: ATTEND Internal Medicine Cardiovascular Disease
DX: E55.9 Vitamin D deficiency, unspecified (principal); I11.0 Hypertensive heart disease with heart failure; I50.9 Heart failure, unspecified; D56.5 Hemoglobin E-beta thalassemia
CPT/HCPCS: 84153

== ENCOUNTER → 2018-12-17 | Outpatient (CLI) | payer OTHER ==
[2018-12-17 11:32] LABS: B-TYPE NATRIURETIC PEPTIDE 10 pg/mL (0-100)
[2018-12-17 12:19] LABS: PROSTATE SPECIFIC ANTIGEN 1.26 ng/mL (0.00-4.00)
[2018-12-17 14:10] LABS: ALANINE AMINOTRANSFERASE 25 U/L (12-78); ALBUMIN 3.9 g/dL (3.4-5.0); ALKALINE PHOSPHATASE 77 U/L (46-116); ANION GAP 9 mmol/L (8-16); ASPARTATE AMINOTRANSFERASE 20 U/L (15-37); BILIRUBIN,TOTAL 1.6 mg/dL (0.1-1.0); CALCIUM, TOTAL 8.5 mg/dL (8.8-10.5); CARBON DIOXIDE 29 mmol/L (22-29); CHLORIDE 103 mmol/L (98-107); CHOL/HDL RATIO 2.6 (4.2-7.3); CHOLESTEROL 156 mg/dL (131-200); CREATININE 0.87 mg/dL (0.60-1.30); GLOMERULAR FILTR. RATE CALC > 60 mL/min (>60); GLUCOSE,RANDOM 76 mg/dL (70-110); HDL CHOLESTEROL 59 mg/dL (40-60); LDL CHOL (CALC.) 86 mg/dL (0-130); POTASSIUM 3.9 mmol/L (3.5-5.1); SODIUM SERUM 141 mmol/L (136-145); TOTAL PROTEIN, SERUM 7.4 g/dL (6.4-8.2); TRIGLYCERIDES 54 mg/dL (15-150); UREA NITROGEN, BLOOD 11 mg/dL (7-18)
== END | disposition home or self-care (01) ==
LOC: LABPV 10:18
PROVIDERS: ATTEND Internal Medicine Cardiovascular Disease
DX: E55.9 Vitamin D deficiency, unspecified (principal); I11.0 Hypertensive heart disease with heart failure; I50.9 Heart failure, unspecified; E11.8 Type 2 diabetes mellitus with unspecified complications; D56.5 Hemoglobin E-beta thalassemia
CPT/HCPCS: 83036; 84153

== ENCOUNTER → 2019-03-02 | Outpatient (CLI) | payer OTHER ==
[2019-03-02 11:38] LABS: BASOPHILS % (AUTO) 0.7 % (0.0-2.0); EOSINOPHILS % (AUTO) 11.3 % (1.0-6.0); HEMATOCRIT 46.4 % (41-53); HEMOGLOBIN 15.5 g/dL (13.5-17.5); LYMPHOCYTES # (AUTO) 1.6 K/uL (1.0-4.8); LYMPHOCYTES % (AUTO) 33.1 % (22.0-44.0); MEAN CORPUSCULAR HEMOGLOBIN 30.8 pg (26.0-34.0); MEAN CORPUSCULAR HGB CONC 33.4 G/dL (31.0-37.0); MEAN CORPUSCULAR VOLUME 92 fL (80-100); MONOCYTES # (AUTO) 0.3 K/uL (0.1-1.0); MONOCYTES % (AUTO) 6.4 % (2.0-9.0); NEUTROPHILS # (AUTO) 2.3 K/uL (1.8-7.7); NEUTROPHILS % (AUTO) 48.5 % (40.0-70.0); PLATELET COUNT (AUTO) 213 K/uL (150-450); RED BLOOD CELL COUNT(AUTO) 5.03 MIL/uL (4.50-5.90); RED CELL DISTRIBUTION WIDTH 13.1 % (11.5-14.5)
[2019-03-02 12:14] LABS: HEMOGLOBIN A1C 4.8 % (4.5-6.2)
[2019-03-02 12:30] LABS: ALANINE AMINOTRANSFERASE 26 U/L (12-78); ALBUMIN 3.6 g/dL (3.4-5.0); ALKALINE PHOSPHATASE 74 U/L (46-116); ANION GAP 5 mmol/L (8-16); ASPARTATE AMINOTRANSFERASE 27 U/L (15-37); BILIRUBIN,TOTAL 1.7 mg/dL (0.1-1.0); CALCIUM, TOTAL 8.6 mg/dL (8.8-10.5); CARBON DIOXIDE 30 mmol/L (22-29); CHLORIDE 103 mmol/L (98-107); CHOL/HDL RATIO 3.3 (4.2-7.3); CHOLESTEROL 200 mg/dL (131-200); CREATININE 0.95 mg/dL (0.60-1.30); FREE T4 (FREE THYROXINE) 1.06 ng/dL (0.76-1.46); GLOMERULAR FILTR. RATE CALC > 60 mL/min (>60); GLUCOSE,RANDOM 105 mg/dL (70-110); HDL CHOLESTEROL 60 mg/dL (40-60); LDL CHOL (CALC.) 127 mg/dL (0-130); POTASSIUM 4.8 mmol/L (3.5-5.1); SODIUM SERUM 138 mmol/L (136-145); THYROID STIMULATING HORMONE 0.97 uIU/mL (0.36-3.74); TOTAL PROTEIN, SERUM 7.4 g/dL (6.4-8.2); TRIGLYCERIDES 64 mg/dL (15-150); UREA NITROGEN, BLOOD 13 mg/dL (7-18)
== END | disposition home or self-care (01) ==
LOC: LABPV 07:29
PROVIDERS: ATTEND Internal Medicine Cardiovascular Disease
DX: E55.9 Vitamin D deficiency, unspecified (principal); I11.0 Hypertensive heart disease with heart failure; I50.9 Heart failure, unspecified; E11.8 Type 2 diabetes mellitus with unspecified complications; D56.5 Hemoglobin E-beta thalassemia
CPT/HCPCS: 82306; 83036; 83735; 84439; 84443

== ENCOUNTER → 2019-06-13 | Outpatient (CLI) | payer OTHER ==
[2019-06-13 08:13] LABS: APPEARANCE,URINE CLEAR (CLEAR); BILIRUBIN,URINE NEGATIVE (NEGATIVE); GLUCOSE, URINE (UA) NEGATIVE (NEGATIVE); KETONES,URINE NEGATIVE (NEGATIVE); LEUKOCYTE ESTERASE ,URINE NEGATIVE (NEGATIVE); NITRATE,URINE NEGATIVE (NEGATIVE); OCCULT BLOOD,URINE NEGATIVE (NEGATIVE); PH,URINE 5.5 (5.0-8.0); PROTEIN,URINE NEGATIVE (NEGATIVE); UROBILINOGEN,URINE 0.2 mg/dL (<=1.0)
[2019-06-13 08:17] LABS: BASOPHILS % (AUTO) 0.6 % (0.0-2.0); EOSINOPHILS % (AUTO) 7.4 % (1.0-6.0); HEMATOCRIT 45.4 % (41-53); HEMOGLOBIN 15.1 g/dL (13.5-17.5); LYMPHOCYTES # (AUTO) 1.7 K/uL (1.0-4.8); LYMPHOCYTES % (AUTO) 34.5 % (22.0-44.0); MEAN CORPUSCULAR HEMOGLOBIN 30.4 pg (26.0-34.0); MEAN CORPUSCULAR HGB CONC 33.4 G/dL (31.0-37.0); MEAN CORPUSCULAR VOLUME 91 fL (80-100); MONOCYTES # (AUTO) 0.3 K/uL (0.1-1.0); MONOCYTES % (AUTO) 7.2 % (2.0-9.0); NEUTROPHILS # (AUTO) 2.4 K/uL (1.8-7.7); NEUTROPHILS % (AUTO) 50.3 % (40.0-70.0); PLATELET COUNT (AUTO) 220 K/uL (150-450); RED BLOOD CELL COUNT(AUTO) 4.99 MIL/uL (4.50-5.90); RED CELL DISTRIBUTION WIDTH 13.4 % (11.5-14.5)
[2019-06-13 08:33] LABS: HEMOGLOBIN A1C 5.4 % (3.8-5.6)
[2019-06-13 08:52] LABS: ALANINE AMINOTRANSFERASE 36 U/L (12-78); ALBUMIN 3.6 g/dL (3.4-5.0); ALKALINE PHOSPHATASE 85 U/L (46-116); ANION GAP 4 mmol/L (8-16); ASPARTATE AMINOTRANSFERASE 32 U/L (15-37); CALCIUM, TOTAL 8.9 mg/dL (8.8-10.5); CARBON DIOXIDE 30 mmol/L (22-29); CHLORIDE 104 mmol/L (98-107); CHOL/HDL RATIO 3.9 (4.2-7.3); CHOLESTEROL 215 mg/dL (131-200); CREATININE 0.98 mg/dL (0.60-1.30); GLOMERULAR FILTR. RATE CALC > 60 mL/min (>60); GLUCOSE,RANDOM 98 mg/dL (70-110); HDL CHOLESTEROL 55 mg/dL (40-60); LDL CHOL (CALC.) 143 mg/dL (0-130); POTASSIUM 4.1 mmol/L (3.5-5.1); SODIUM SERUM 138 mmol/L (136-145); THYROID STIMULATING HORMONE 1.06 uIU/mL (0.36-3.74); TOTAL PROTEIN, SERUM 7.6 g/dL (6.4-8.2); TRIGLYCERIDES 84 mg/dL (15-150); UREA NITROGEN, BLOOD 14 mg/dL (7-18)
== END | disposition home or self-care (01) ==
LOC: LABPV 07:39
PROVIDERS: ATTEND Internal Medicine
DX: Z12.5 Encounter for screening for malignant neoplasm of prostate (principal); E78.5 Hyperlipidemia, unspecified; Z79.899 Other long term (current) drug therapy
CPT/HCPCS: 83036; 84154; 84443

== ENCOUNTER 2019-07-11 20:48 | Emergency (ER) | payer OTHER ==
[~2019-07-11] VITALS: Ht 177.8 cm; Wt 75.0 kg
[2019-07-11 21:07] VITALS: BP 125/81
== END 2019-07-11 22:30 | disposition home or self-care (01) ==
LOC: EMS 20:48
DX: R05 Cough (principal); R50.9 Fever, unspecified; E78.00 Pure hypercholesterolemia, unspecified; I25.2 Old myocardial infarction; Z20.828 Contact with and (suspected) exposure to other viral communicable diseases
CPT/HCPCS: 87635

== ENCOUNTER → 2019-10-17 | Outpatient (CLI) | payer OTHER ==
[2019-10-17 12:52] LABS: HEMOGLOBIN A1C 4.9 % (3.8-5.6)
[2019-10-17 12:55] LABS: ALANINE AMINOTRANSFERASE 26 U/L (12-78); ALBUMIN 3.7 g/dL (3.4-5.0); ALKALINE PHOSPHATASE 83 U/L (46-116); ANION GAP 5 mmol/L (8-16); ASPARTATE AMINOTRANSFERASE 27 U/L (15-37); BILIRUBIN,TOTAL 1.2 mg/dL (0.1-1.0); CALCIUM, TOTAL 8.3 mg/dL (8.8-10.5); CARBON DIOXIDE 29 mmol/L (22-29); CHLORIDE 107 mmol/L (98-107); CHOL/HDL RATIO 2.9 (4.2-7.3); CHOLESTEROL 170 mg/dL (131-200); CREATININE 1.08 mg/dL (0.60-1.30); FREE T4 (FREE THYROXINE) 1.03 ng/dL (0.76-1.46); GLOMERULAR FILTR. RATE CALC > 60 mL/min (>60); GLUCOSE,RANDOM 97 mg/dL (70-110); HDL CHOLESTEROL 59 mg/dL (40-60); LDL CHOL (CALC.) 101 mg/dL (0-130); POTASSIUM 4.3 mmol/L (3.5-5.1); SODIUM SERUM 141 mmol/L (136-145); THYROID STIMULATING HORMONE 0.75 uIU/mL (0.36-3.74); TOTAL PROTEIN, SERUM 7.6 g/dL (6.4-8.2); TRIGLYCERIDES 50 mg/dL (15-150); UREA NITROGEN, BLOOD 12 mg/dL (7-18)
== END | disposition home or self-care (01) ==
LOC: LABPV 09:00
PROVIDERS: ATTEND Internal Medicine Cardiovascular Disease
DX: I11.0 Hypertensive heart disease with heart failure (principal); I50.9 Heart failure, unspecified; E11.8 Type 2 diabetes mellitus with unspecified complications; E55.9 Vitamin D deficiency, unspecified; D56.5 Hemoglobin E-beta thalassemia
CPT/HCPCS: 82306; 83036; 83735; 84153; 84439; 84443

== ENCOUNTER → 2019-12-12 | Outpatient (CLI) | payer OTHER | END | disposition home or self-care (01) | LOC: LABPV 16:40 | PROVIDERS: ATTEND Emergency Medicine | DX: Z20.828 Contact with and (suspected) exposure to other viral communicable diseases (principal) | CPT/HCPCS: 87426; U0003 ==

== ENCOUNTER → 2019-12-16 | Outpatient (CLI) | payer OTHER | END | disposition home or self-care (01) | LOC: LABPV 17:43 | DX: Z20.828 Contact with and (suspected) exposure to other viral communicable diseases (principal) | CPT/HCPCS: U0003-CS ==

== ENCOUNTER → 2020-01-17 | Outpatient (CLI) | payer OTHER ==
[2020-01-17 13:11] LABS: BASOPHILS % (AUTO) 0.5 % (0.0-2.0); EOSINOPHILS % (AUTO) 6.3 % (1.0-6.0); HEMATOCRIT 43.5 % (41-53); HEMOGLOBIN 14.3 g/dL (13.5-17.5); LYMPHOCYTES # (AUTO) 2.1 K/uL (1.0-4.8); LYMPHOCYTES % (AUTO) 41.4 % (22.0-44.0); MEAN CORPUSCULAR HEMOGLOBIN 30.2 pg (26.0-34.0); MEAN CORPUSCULAR HGB CONC 32.9 G/dL (31.0-37.0); MEAN CORPUSCULAR VOLUME 92 fL (80-100); MONOCYTES # (AUTO) 0.5 K/uL (0.1-1.0); MONOCYTES % (AUTO) 10.2 % (2.0-9.0); NEUTROPHILS # (AUTO) 2.1 K/uL (1.8-7.7); NEUTROPHILS % (AUTO) 41.6 % (40.0-70.0); PLATELET COUNT (AUTO) 205 K/uL (150-450); RED BLOOD CELL COUNT(AUTO) 4.74 MIL/uL (4.50-5.90); RED CELL DISTRIBUTION WIDTH 13.4 % (11.5-14.5)
[2020-01-17 13:28] LABS: ALANINE AMINOTRANSFERASE 43 U/L (12-78); ALBUMIN 3.7 g/dL (3.4-5.0); ALKALINE PHOSPHATASE 75 U/L (46-116); ANION GAP 4 mmol/L (8-16); ASPARTATE AMINOTRANSFERASE 38 U/L (15-37); BILIRUBIN,TOTAL 1.2 mg/dL (0.1-1.0); CALCIUM, TOTAL 8.6 mg/dL (8.8-10.5); CARBON DIOXIDE 31 mmol/L (22-29); CHLORIDE 104 mmol/L (98-107); CHOL/HDL RATIO 3.4 (4.2-7.3); CHOLESTEROL 182 mg/dL (131-200); CREATININE 0.91 mg/dL (0.60-1.30); GLOMERULAR FILTR. RATE CALC > 60 mL/min (>60); GLUCOSE,RANDOM 89 mg/dL (70-110); HDL CHOLESTEROL 53 mg/dL (40-60); LDL CHOL (CALC.) 109 mg/dL (0-130); POTASSIUM 4.2 mmol/L (3.5-5.1); SODIUM SERUM 139 mmol/L (136-145); THYROID STIMULATING HORMONE 1.16 uIU/mL (0.36-3.74); TRIGLYCERIDES 99 mg/dL (15-150); UREA NITROGEN, BLOOD 10 mg/dL (7-18)
[2020-01-17 13:35] LABS: HEMOGLOBIN A1C 4.9 % (3.8-5.6)
== END | disposition home or self-care (01) ==
LOC: LABPV 09:22
PROVIDERS: ATTEND Internal Medicine Cardiovascular Disease
DX: I11.0 Hypertensive heart disease with heart failure (principal); I50.9 Heart failure, unspecified; E11.8 Type 2 diabetes mellitus with unspecified complications; E55.9 Vitamin D deficiency, unspecified; D56.5 Hemoglobin E-beta thalassemia
CPT/HCPCS: 82306; 83036; 83735; 84443

== ENCOUNTER → 2020-01-24 | Outpatient (CLI) | payer OTHER ==
[2020-01-24 13:44] LABS: ANION GAP 8 mmol/L (8-16); CALCIUM, TOTAL 8.7 mg/dL (8.8-10.5); CARBON DIOXIDE 27 mmol/L (22-29); CHLORIDE 106 mmol/L (98-107); CREATININE 0.94 mg/dL (0.60-1.30); GLOMERULAR FILTR. RATE CALC > 60 mL/min (>60); GLUCOSE,RANDOM 121 mg/dL (70-110); POTASSIUM 4.6 mmol/L (3.5-5.1); SODIUM SERUM 141 mmol/L (136-145); UREA NITROGEN, BLOOD 11 mg/dL (7-18)
== END | disposition home or self-care (01) ==
LOC: LABPV 11:35
PROVIDERS: ATTEND Internal Medicine
DX: Z79.899 Other long term (current) drug therapy (principal)

== ENCOUNTER → 2020-01-25 | Outpatient (CLI) | payer OTHER ==
[~2020-01-25] MED LIST changes: +IOVERSOL 350 MG/ML 100 ML VIAL ONE; +SODIUM CHLORIDE 0.9% 100 ML ONE
== END | disposition home or self-care (01) ==
LOC: RADMN 08:50
PROVIDERS: ATTEND Internal Medicine
DX: R05 Cough (principal)
CPT/HCPCS: 71260; J7050; Q9967

== ENCOUNTER → 2020-04-03 | Outpatient (CLI) | payer OTHER ==
[~2020-04-03] MED LIST changes: -IOVERSOL 350 MG/ML 100 ML VIAL ONE; -SODIUM CHLORIDE 0.9% 100 ML ONE
[2020-04-03 08:06] LABS: HEMOGLOBIN A1C 5.1 % (3.8-5.6)
[2020-04-03 08:17] LABS: ALANINE AMINOTRANSFERASE 36 U/L (12-78); ALBUMIN 3.8 g/dL (3.4-5.0); ALKALINE PHOSPHATASE 89 U/L (46-116); ANION GAP 7 mmol/L (8-16); ASPARTATE AMINOTRANSFERASE 23 U/L (15-37); BILIRUBIN,TOTAL 1.3 mg/dL (0.1-1.0); CALCIUM, TOTAL 8.8 mg/dL (8.8-10.5); CARBON DIOXIDE 28 mmol/L (22-29); CHLORIDE 104 mmol/L (98-107); CHOL/HDL RATIO 3.3 (4.2-7.3); CHOLESTEROL 221 mg/dL (131-200); CREATININE 1.19 mg/dL (0.60-1.30); FREE THYROXINE INDEX 3.3 (1.4-4.5); GLOMERULAR FILTR. RATE CALC > 60 mL/min (>60); GLUCOSE,RANDOM 123 mg/dL (70-110); HDL CHOLESTEROL 66 mg/dL (40-60); LDL CHOL (CALC.) 139 mg/dL (0-130); POTASSIUM 4.3 mmol/L (3.5-5.1); SODIUM SERUM 139 mmol/L (136-145); T3 UPTAKE 36 % (31-39); TOTAL PROTEIN, SERUM 7.4 g/dL (6.4-8.2); TRIGLYCERIDES 79 mg/dL (15-150); UREA NITROGEN, BLOOD 12 mg/dL (7-18)
[2020-04-03 08:28] LABS: BASOPHILS % (AUTO) 0.7 % (0.0-2.0); EOSINOPHILS % (AUTO) 8.9 % (1.0-6.0); HEMOGLOBIN 14.9 g/dL (13.5-17.5); LYMPHOCYTES # (AUTO) 1.7 K/uL (1.0-4.8); LYMPHOCYTES % (AUTO) 35.7 % (22.0-44.0); MEAN CORPUSCULAR HEMOGLOBIN 30.6 pg (26.0-34.0); MEAN CORPUSCULAR VOLUME 93 fL (80-100); MONOCYTES # (AUTO) 0.3 K/uL (0.1-1.0); MONOCYTES % (AUTO) 7.4 % (2.0-9.0); NEUTROPHILS # (AUTO) 2.2 K/uL (1.8-7.7); NEUTROPHILS % (AUTO) 47.3 % (40.0-70.0); PLATELET COUNT (AUTO) 241 K/uL (150-450); RED BLOOD CELL COUNT(AUTO) 4.85 MIL/uL (4.50-5.90); RED CELL DISTRIBUTION WIDTH 13.7 % (11.5-14.5)
== END | disposition home or self-care (01) ==
LOC: LABPV 07:22
PROVIDERS: ATTEND Internal Medicine Cardiovascular Disease
DX: I11.0 Hypertensive heart disease with heart failure (principal); I50.9 Heart failure, unspecified; E11.8 Type 2 diabetes mellitus with unspecified complications; E55.9 Vitamin D deficiency, unspecified; D56.5 Hemoglobin E-beta thalassemia
CPT/HCPCS: 82306; 83036; 83735; 84436; 84479

== ENCOUNTER → 2020-04-30 | Outpatient (CLI) | payer OTHER | END | disposition home or self-care (01) | LOC: RADMN 15:53 | PROVIDERS: ATTEND Internal Medicine | DX: S69.92XA Unspecified injury of left wrist, hand and finger(s), initial encounter (principal); M79.642 Pain in left hand; X58.XXXA Exposure to other specified factors, initial encounter; Y93.89 Activity, other specified; Y92.89 Other specified places as the place of occurrence of the external cause; Y99.8 Other external cause status | CPT/HCPCS: 73130-TC ==

== ENCOUNTER → 2020-05-17 | Outpatient (CLI) | payer OTHER ==
[2020-05-17 08:09] LABS: BASOPHILS % (AUTO) 0.4 % (0.0-2.0); EOSINOPHILS % (AUTO) 7.9 % (1.0-6.0); HEMATOCRIT 48.4 % (41-53); HEMOGLOBIN 16.2 g/dL (13.5-17.5); LYMPHOCYTES # (AUTO) 1.9 K/uL (1.0-4.8); LYMPHOCYTES % (AUTO) 35.1 % (22.0-44.0); MEAN CORPUSCULAR HGB CONC 33.4 G/dL (31.0-37.0); MEAN CORPUSCULAR VOLUME 93 fL (80-100); MONOCYTES # (AUTO) 0.4 K/uL (0.1-1.0); NEUTROPHILS # (AUTO) 2.7 K/uL (1.8-7.7); NEUTROPHILS % (AUTO) 49.6 % (40.0-70.0); PLATELET COUNT (AUTO) 214 K/uL (150-450); RED BLOOD CELL COUNT(AUTO) 5.23 MIL/uL (4.50-5.90); RED CELL DISTRIBUTION WIDTH 13.5 % (11.5-14.5)
[2020-05-17 08:23] LABS: B-TYPE NATRIURETIC PEPTIDE < 5 pg/mL (0-100)
[2020-05-17 08:30] LABS: ALANINE AMINOTRANSFERASE 48 U/L (12-78); ALBUMIN 4.1 g/dL (3.4-5.0); ALKALINE PHOSPHATASE 85 U/L (46-116); ANION GAP 8 mmol/L (8-16); ASPARTATE AMINOTRANSFERASE 36 U/L (15-37); BILIRUBIN,TOTAL 1.4 mg/dL (0.1-1.0); CALCIUM, TOTAL 9.7 mg/dL (8.8-10.5); CARBON DIOXIDE 32 mmol/L (22-29); CHLORIDE 107 mmol/L (98-107); CHOL/HDL RATIO 2.8 (4.2-7.3); CHOLESTEROL 201 mg/dL (131-200); CREATININE 1.18 mg/dL (0.60-1.30); FREE T4 (FREE THYROXINE) 1.08 ng/dL (0.76-1.46); GLOMERULAR FILTR. RATE CALC > 60 mL/min (>60); GLUCOSE,RANDOM 111 mg/dL (70-110); HDL CHOLESTEROL 72 mg/dL (40-60); LDL CHOL (CALC.) 113 mg/dL (0-130); POTASSIUM 4.8 mmol/L (3.5-5.1); SODIUM SERUM 147 mmol/L (136-145); THYROID STIMULATING HORMONE 1.14 uIU/mL (0.36-3.74); TOTAL PROTEIN, SERUM 8.2 g/dL (6.4-8.2); TRIGLYCERIDES 81 mg/dL (15-150); UREA NITROGEN, BLOOD 10 mg/dL (7-18)
== END | disposition home or self-care (01) ==
LOC: LABPV 07:39
PROVIDERS: ATTEND Internal Medicine Cardiovascular Disease
DX: I11.0 Hypertensive heart disease with heart failure (principal); I50.9 Heart failure, unspecified; E11.8 Type 2 diabetes mellitus with unspecified complications; E55.9 Vitamin D deficiency, unspecified; D56.5 Hemoglobin E-beta thalassemia
CPT/HCPCS: 82306; 83036; 83735; 84439; 84443

== ENCOUNTER → 2020-06-19 | Outpatient (CLI) | payer OTHER ==
[2020-06-20 09:29] LABS: BASOPHILS % (AUTO) 0.6 % (0.0-2.0); EOSINOPHILS % (AUTO) 8.7 % (1.0-6.0); HEMATOCRIT 46.8 % (41-53); HEMOGLOBIN 15.5 g/dL (13.5-17.5); LYMPHOCYTES # (AUTO) 2.2 K/uL (1.0-4.8); LYMPHOCYTES % (AUTO) 38.5 % (22.0-44.0); MEAN CORPUSCULAR HEMOGLOBIN 30.7 pg (26.0-34.0); MEAN CORPUSCULAR HGB CONC 33.2 G/dL (31.0-37.0); MEAN CORPUSCULAR VOLUME 93 fL (80-100); MONOCYTES # (AUTO) 0.4 K/uL (0.1-1.0); MONOCYTES % (AUTO) 7.3 % (2.0-9.0); NEUTROPHILS # (AUTO) 2.6 K/uL (1.8-7.7); NEUTROPHILS % (AUTO) 44.9 % (40.0-70.0); PLATELET COUNT (AUTO) 208 K/uL (150-450); RED BLOOD CELL COUNT(AUTO) 5.05 MIL/uL (4.50-5.90); RED CELL DISTRIBUTION WIDTH 13.5 % (11.5-14.5)
[2020-06-20 10:35] LABS: ANION GAP 7 mmol/L (8-16); CARBON DIOXIDE 30 mmol/L (22-29); CHLORIDE 103 mmol/L (98-107); CREATININE 0.99 mg/dL (0.60-1.30); GLUCOSE,RANDOM 108 mg/dL (70-110); SODIUM SERUM 140 mmol/L (136-145); UREA NITROGEN, BLOOD 13 mg/dL (7-18)
[2020-06-20 10:36] LABS: ALANINE AMINOTRANSFERASE 75 U/L (12-78); ALBUMIN 3.7 g/dL (3.4-5.0); ALKALINE PHOSPHATASE 81 U/L (46-116); ASPARTATE AMINOTRANSFERASE 44 U/L (15-37); BILIRUBIN,TOTAL 1.7 mg/dL (0.1-1.0); CHOL/HDL RATIO 3.3 (4.2-7.3); CHOLESTEROL 208 mg/dL (131-200); GLOMERULAR FILTR. RATE CALC > 60 mL/min (>60); HDL CHOLESTEROL 63 mg/dL (40-60); LDL CHOL (CALC.) 129 mg/dL (0-130); TOTAL PROTEIN, SERUM 7.6 g/dL (6.4-8.2); TRIGLYCERIDES 82 mg/dL (15-150)
== END | disposition home or self-care (01) ==
LOC: LABMN 15:00
PROVIDERS: ATTEND Internal Medicine
DX: Z12.5 Encounter for screening for malignant neoplasm of prostate (principal); E78.5 Hyperlipidemia, unspecified; Z79.899 Other long term (current) drug therapy
CPT/HCPCS: 83036; 84154; 84443

== ENCOUNTER → 2020-06-28 | Day surgery (SDC) | payer OTHER ==
[2020-06-27 13:21] LABS: COVID AG,FIA SOURCE NASOPHARYNGEAL
[~2020-06-28] VITALS: Ht 177.8 cm; Wt 75.0 kg
[~2020-06-28] MED LIST changes: +LIDOCAINE/PF 2% 5 ML VIAL IM ONE; +PROPOFOL 1% 20 ML VIAL IVP ONE; +ROSU10TA22 PO; +SODIUM CHLORIDE 0.9% 1,000 ML IV ONE; +SODIUM CHLORIDE 0.9% 1,000 ML ONE
== END | disposition home or self-care (01) ==
LOC: SURGERY 12:17
PROVIDERS: ATTEND Student in an Organized Health Care Education/Training Program
DX: K63.5 Polyp of colon (principal); K62.1 Rectal polyp; K64.8 Other hemorrhoids; K25.9 Gastric ulcer, unspecified as acute or chronic, without hemorrhage or perforation; K20.90 Esophagitis, unspecified without bleeding
CPT/HCPCS: 43239; 45380; 45385; 87426; C1769; C9803; J7030; J2704; J3490

== ENCOUNTER → 2020-07-02 | Outpatient (CLI) | payer OTHER ==
[~2020-07-02] MED LIST changes: -LIDOCAINE/PF 2% 5 ML VIAL IM ONE; -PROPOFOL 1% 20 ML VIAL IVP ONE; -ROSU10TA22 PO; +ROSU10TA72 PO; -SODIUM CHLORIDE 0.9% 1,000 ML IV ONE; -SODIUM CHLORIDE 0.9% 1,000 ML ONE
[2020-07-02 09:42] LABS: ALBUMIN 3.7 g/dL (3.4-5.0); BILIRUBIN,DIRECT 0.3 mg/dL (0.00-0.20); BILIRUBIN,TOTAL 1.6 mg/dL (0.1-1.0); TOTAL PROTEIN, SERUM 7.5 g/dL (6.4-8.2)
[2020-07-03 05:07] LABS: HEPATITIS C AB (EIA) <0.1 s/co ratio (0.0-0.9)
== END | disposition home or self-care (01) ==
LOC: LABPV 07:41
PROVIDERS: ATTEND Internal Medicine
DX: R94.5 Abnormal results of liver function studies (principal)
CPT/HCPCS: 86317; 86704; 87340

== ENCOUNTER → 2020-07-03 | Outpatient (CLI) | payer OTHER | END | disposition home or self-care (01) | LOC: RADPV 08:10 | PROVIDERS: ATTEND Internal Medicine Infectious Disease | DX: K76.0 Fatty (change of) liver, not elsewhere classified (principal) | CPT/HCPCS: 76700 ==

== ENCOUNTER → 2020-07-03 | Outpatient (CLI) | payer OTHER | END | disposition home or self-care (01) | LOC: LABPV 08:18 | PROVIDERS: ATTEND Specialist | DX: R14.0 Abdominal distension (gaseous) (principal); R92.1 Mammographic calcification found on diagnostic imaging of breast; B96.81 Helicobacter pylori [H. pylori] as the cause of diseases classified elsewhere | CPT/HCPCS: 87338 ==

== ENCOUNTER → 2020-08-13 | Outpatient (CLI) | payer OTHER ==
[2020-08-13 10:27] LABS: BASOPHILS % (AUTO) 0.5 % (0.0-2.0); EOSINOPHILS % (AUTO) 7.9 % (1.0-6.0); HEMATOCRIT 45.8 % (41-53); HEMOGLOBIN 15.1 g/dL (13.5-17.5); LYMPHOCYTES # (AUTO) 1.8 K/uL (1.0-4.8); LYMPHOCYTES % (AUTO) 34.4 % (22.0-44.0); MEAN CORPUSCULAR HEMOGLOBIN 30.6 pg (26.0-34.0); MEAN CORPUSCULAR HGB CONC 32.9 G/dL (31.0-37.0); MEAN CORPUSCULAR VOLUME 93 fL (80-100); MONOCYTES # (AUTO) 0.4 K/uL (0.1-1.0); MONOCYTES % (AUTO) 8.1 % (2.0-9.0); NEUTROPHILS # (AUTO) 2.6 K/uL (1.8-7.7); NEUTROPHILS % (AUTO) 49.1 % (40.0-70.0); PLATELET COUNT (AUTO) 228 K/uL (150-450); RED BLOOD CELL COUNT(AUTO) 4.92 MIL/uL (4.50-5.90); RED CELL DISTRIBUTION WIDTH 13.3 % (11.5-14.5)
[2020-08-13 10:51] LABS: ALANINE AMINOTRANSFERASE 35 U/L (12-78); ALKALINE PHOSPHATASE 78 U/L (46-116); ANION GAP 6 mmol/L (8-16); ASPARTATE AMINOTRANSFERASE 24 U/L (15-37); BILIRUBIN,TOTAL 1.3 mg/dL (0.1-1.0); CALCIUM, TOTAL 8.9 mg/dL (8.8-10.5); CARBON DIOXIDE 30 mmol/L (22-29); CHLORIDE 104 mmol/L (98-107); CHOL/HDL RATIO 3.4 (4.2-7.3); CHOLESTEROL 188 mg/dL (131-200); CREATININE 0.92 mg/dL (0.60-1.30); FREE T4 (FREE THYROXINE) 1.09 ng/dL (0.76-1.46); GLOMERULAR FILTR. RATE CALC > 60 mL/min (>60); GLUCOSE,RANDOM 109 mg/dL (70-110); HDL CHOLESTEROL 56 mg/dL (40-60); LDL CHOL (CALC.) 118 mg/dL (0-130); POTASSIUM 4.8 mmol/L (3.5-5.1); SODIUM SERUM 140 mmol/L (136-145); THYROID STIMULATING HORMONE 1.02 uIU/mL (0.36-3.74); TOTAL PROTEIN, SERUM 7.4 g/dL (6.4-8.2); TRIGLYCERIDES 72 mg/dL (15-150); UREA NITROGEN, BLOOD 13 mg/dL (7-18)
[2020-08-13 11:07] LABS: B-TYPE NATRIURETIC PEPTIDE 10 pg/mL (0-100)
== END | disposition home or self-care (01) ==
LOC: LABPV 07:12
PROVIDERS: ATTEND Internal Medicine Cardiovascular Disease
DX: I11.0 Hypertensive heart disease with heart failure (principal); I50.9 Heart failure, unspecified; E11.8 Type 2 diabetes mellitus with unspecified complications; E55.9 Vitamin D deficiency, unspecified; D56.5 Hemoglobin E-beta thalassemia
CPT/HCPCS: 80053; 80061; 82306; 83036; 83735; 83880; 84439; 84443; 85025

== ENCOUNTER → 2020-08-13 | Outpatient (CLI) | payer OTHER | END | disposition home or self-care (01) | LOC: RADMN 15:57 | PROVIDERS: ATTEND Internal Medicine | DX: R76.11 Nonspecific reaction to tuberculin skin test without active tuberculosis (principal) | CPT/HCPCS: 71045 ==

== ENCOUNTER 2020-08-21 09:58 | Emergency (ER) | payer OTHER ==
[~2020-08-21] VITALS: Ht 172.7 cm; Wt 75.0 kg
[2020-08-21 10:08] VITALS: BP 114/72
== END 2020-08-21 10:28 | disposition home or self-care (01) ==
LOC: EMS 10:00
DX: S40.022A Contusion of left upper arm, initial encounter (principal); I25.2 Old myocardial infarction; E78.00 Pure hypercholesterolemia, unspecified; W50.3XXA Accidental bite by another person, initial encounter; Y93.89 Activity, other specified; Y92.89 Other specified places as the place of occurrence of the external cause; Y99.8 Other external cause status
CPT/HCPCS: 99281; Z7502

== ENCOUNTER → 2020-10-22 | Outpatient (CLI) | payer OTHER ==
[2020-10-22 08:41] LABS: ALANINE AMINOTRANSFERASE 29 U/L (12-78); ALBUMIN 3.7 g/dL (3.4-5.0); ALKALINE PHOSPHATASE 86 U/L (46-116); ANION GAP 6 mmol/L (8-16); ASPARTATE AMINOTRANSFERASE 21 U/L (15-37); BILIRUBIN,TOTAL 1.2 mg/dL (0.1-1.0); CALCIUM, TOTAL 8.9 mg/dL (8.8-10.5); CARBON DIOXIDE 31 mmol/L (22-29); CHLORIDE 105 mmol/L (98-107); CHOL/HDL RATIO 3.4 (4.2-7.3); CHOLESTEROL 193 mg/dL (131-200); CREATININE 1.04 mg/dL (0.60-1.30); GLOMERULAR FILTR. RATE CALC > 60 mL/min (>60); GLUCOSE,RANDOM 92 mg/dL (70-110); HDL CHOLESTEROL 56 mg/dL (40-60); LDL CHOL (CALC.) 119 mg/dL (0-130); POTASSIUM 4.6 mmol/L (3.5-5.1); SODIUM SERUM 142 mmol/L (136-145); THYROID STIMULATING HORMONE 0.74 uIU/mL (0.36-3.74); TOTAL PROTEIN, SERUM 7.4 g/dL (6.4-8.2); TRIGLYCERIDES 89 mg/dL (15-150); UREA NITROGEN, BLOOD 12 mg/dL (7-18)
== END | disposition home or self-care (01) ==
LOC: LABPV 07:54
PROVIDERS: ATTEND Internal Medicine
DX: E78.5 Hyperlipidemia, unspecified (principal); R94.5 Abnormal results of liver function studies; Z79.899 Other long term (current) drug therapy
CPT/HCPCS: 80053; 80061; 83735; 84443

== ENCOUNTER → 2021-01-02 | Outpatient (CLI) | payer OTHER | END | disposition home or self-care (01) | LOC: RADMN 11:02 | PROVIDERS: ATTEND Internal Medicine | DX: J32.2 Chronic ethmoidal sinusitis (principal); R42 Dizziness and giddiness; R51.9 Headache, unspecified | CPT/HCPCS: 70450 ==

== ENCOUNTER → 2021-01-18 | Outpatient (CLI) | payer OTHER ==
[2021-01-18 12:12] LABS: BASOPHILS % (AUTO) 0.3 % (0.0-2.0); EOSINOPHILS % (AUTO) 5.8 % (1.0-6.0); HEMATOCRIT 46.8 % (41-53); HEMOGLOBIN 15.5 g/dL (13.5-17.5); LYMPHOCYTES # (AUTO) 1.2 K/uL (1.0-4.8); LYMPHOCYTES % (AUTO) 15.9 % (22.0-44.0); MEAN CORPUSCULAR HEMOGLOBIN 30.9 pg (26.0-34.0); MEAN CORPUSCULAR VOLUME 94 fL (80-100); MONOCYTES # (AUTO) 0.6 K/uL (0.1-1.0); MONOCYTES % (AUTO) 7.8 % (2.0-9.0); NEUTROPHILS # (AUTO) 5.3 K/uL (1.8-7.7); NEUTROPHILS % (AUTO) 70.2 % (40.0-70.0); PLATELET COUNT (AUTO) 220 K/uL (150-450); RED BLOOD CELL COUNT(AUTO) 5.01 MIL/uL (4.50-5.90); RED CELL DISTRIBUTION WIDTH 13.5 % (11.5-14.5)
[2021-01-18 13:20] LABS: ALANINE AMINOTRANSFERASE 42 U/L (12-78); ALKALINE PHOSPHATASE 96 U/L (46-116); ANION GAP 6 mmol/L (8-16); ASPARTATE AMINOTRANSFERASE 32 U/L (15-37); BILIRUBIN,TOTAL 2.5 mg/dL (0.1-1.0); CALCIUM, TOTAL 8.9 mg/dL (8.8-10.5); CARBON DIOXIDE 31 mmol/L (22-29); CHLORIDE 105 mmol/L (98-107); CHOL/HDL RATIO 3.3 (4.2-7.3); CHOLESTEROL 220 mg/dL (131-200); CREATININE 1.01 mg/dL (0.60-1.30); FREE T4 (FREE THYROXINE) 1.13 ng/dL (0.76-1.46); GLOMERULAR FILTR. RATE CALC > 60 mL/min (>60); GLUCOSE,RANDOM 94 mg/dL (70-110); HDL CHOLESTEROL 66 mg/dL (40-60); LDL CHOL (CALC.) 136 mg/dL (0-130); SODIUM SERUM 142 mmol/L (136-145); THYROID STIMULATING HORMONE 0.93 uIU/mL (0.36-3.74); TOTAL PROTEIN, SERUM 8.3 g/dL (6.4-8.2); TRIGLYCERIDES 92 mg/dL (15-150); UREA NITROGEN, BLOOD 13 mg/dL (7-18)
[2021-01-18 14:16] LABS: B-TYPE NATRIURETIC PEPTIDE < 5 pg/mL (0-100)
== END | disposition home or self-care (01) ==
LOC: LABPV 07:14
PROVIDERS: ATTEND Internal Medicine Cardiovascular Disease
DX: E11.9 Type 2 diabetes mellitus without complications (principal); I50.9 Heart failure, unspecified
CPT/HCPCS: 80053; 80061; 82306; 83036; 83735; 83880; 84439; 84443; 84481; 85025

== ENCOUNTER 2021-01-19 16:29 | Emergency (ER) | payer OTHER ==
[~2021-01-19] VITALS: Ht 167.6 cm; Wt 81.8 kg
[2021-01-19 17:29] LABS: BASOPHILS % (AUTO) 0.3 % (0.0-2.0); EOSINOPHILS % (AUTO) 0.6 % (1.0-6.0); HEMOGLOBIN 14.7 g/dL (13.5-17.5); LYMPHOCYTES # (AUTO) 0.9 K/uL (1.0-4.8); LYMPHOCYTES % (AUTO) 14.8 % (22.0-44.0); MEAN CORPUSCULAR HEMOGLOBIN 30.4 pg (26.0-34.0); MEAN CORPUSCULAR HGB CONC 33.4 G/dL (31.0-37.0); MEAN CORPUSCULAR VOLUME 91 fL (80-100); MONOCYTES # (AUTO) 0.5 K/uL (0.1-1.0); NEUTROPHILS # (AUTO) 4.6 K/uL (1.8-7.7); NEUTROPHILS % (AUTO) 76.3 % (40.0-70.0); PLATELET COUNT (AUTO) 191 K/uL (150-450); RED BLOOD CELL COUNT(AUTO) 4.83 MIL/uL (4.50-5.90); RED CELL DISTRIBUTION WIDTH 13.1 % (11.5-14.5)
[2021-01-19] MEDS ORDERED: LIDOCAINE 5% TRANSDERMAL PATCH TD ONE (17:45)
[2021-01-19] MEDS ORDERED: ASPIRIN 81 MG CHEWABLE TABLET PO ONE (17:45)
[2021-01-19 17:51] LABS: COVID AG,FIA SOURCE NASOPHARYNGEAL
[2021-01-19 17:56] LABS: B-TYPE NATRIURETIC PEPTIDE 15 pg/mL (0-100)
[2021-01-19 18:00] LABS: ANION GAP 9 mmol/L (8-16); CALCIUM, TOTAL 8.7 mg/dL (8.8-10.5); CARBON DIOXIDE 30 mmol/L (22-29); CHLORIDE 103 mmol/L (98-107); CREATININE 1.04 mg/dL (0.60-1.30); GLOMERULAR FILTR. RATE CALC > 60 mL/min (>60); GLUCOSE,RANDOM 131 mg/dL (70-110); POTASSIUM 4.2 mmol/L (3.5-5.1); SODIUM SERUM 142 mmol/L (136-145); UREA NITROGEN, BLOOD 12 mg/dL (7-18)
[2021-01-19 18:06] LABS: ALANINE AMINOTRANSFERASE 52 U/L (12-78); ALBUMIN 3.9 g/dL (3.4-5.0); ALKALINE PHOSPHATASE 95 U/L (46-116); ASPARTATE AMINOTRANSFERASE 39 U/L (15-37); BILIRUBIN,TOTAL 1.2 mg/dL (0.1-1.0); TOTAL PROTEIN, SERUM 7.7 g/dL (6.4-8.2)
[2021-01-19 20:01] VITALS: BP 122/72
== END 2021-01-19 20:58 | disposition home or self-care (01) ==
LOC: EMS 16:31
DX: R00.2 Palpitations (principal); R11.2 Nausea with vomiting, unspecified; R19.7 Diarrhea, unspecified; I25.2 Old myocardial infarction; E78.00 Pure hypercholesterolemia, unspecified; Z20.822 Contact with and (suspected) exposure to COVID-19
CPT/HCPCS: 71045; 80053; 83880; 84484; 85025; 93005; 99285; 36415-L1; 36415-TC

== ENCOUNTER → 2021-01-24 | Outpatient (CLI) | payer OTHER | END | disposition home or self-care (01) | LOC: RADPV 08:59 | PROVIDERS: ATTEND Internal Medicine | DX: M46.06 Spinal enthesopathy, lumbar region (principal); R29.890 Loss of height; M25.78 Osteophyte, vertebrae; M48.061 Spinal stenosis, lumbar region without neurogenic claudication; M79.604 Pain in right leg; M54.50 Low back pain, unspecified | CPT/HCPCS: 72100; 73502 ==

== ENCOUNTER → 2021-02-07 | Outpatient (CLI) | payer OTHER | END | disposition home or self-care (01) | LOC: RADMN 10:53 | PROVIDERS: ATTEND Internal Medicine | DX: M47.816 Spondylosis without myelopathy or radiculopathy, lumbar region (principal); M48.061 Spinal stenosis, lumbar region without neurogenic claudication; M48.07 Spinal stenosis, lumbosacral region; M47.817 Spondylosis without myelopathy or radiculopathy, lumbosacral region | CPT/HCPCS: 72148 ==

== ENCOUNTER → 2021-02-27 | Outpatient (CLI) | payer OTHER ==
[2021-02-27 09:50] LABS: BASOPHILS % (AUTO) 0.7 % (0.0-2.0); EOSINOPHILS % (AUTO) 9.5 % (1.0-6.0); HEMOGLOBIN 15.3 g/dL (13.5-17.5); LYMPHOCYTES # (AUTO) 1.6 K/uL (1.0-4.8); LYMPHOCYTES % (AUTO) 31.3 % (22.0-44.0); MEAN CORPUSCULAR HEMOGLOBIN 30.7 pg (26.0-34.0); MEAN CORPUSCULAR HGB CONC 33.2 G/dL (31.0-37.0); MEAN CORPUSCULAR VOLUME 92 fL (80-100); MONOCYTES # (AUTO) 0.3 K/uL (0.1-1.0); MONOCYTES % (AUTO) 5.8 % (2.0-9.0); NEUTROPHILS # (AUTO) 2.7 K/uL (1.8-7.7); NEUTROPHILS % (AUTO) 52.7 % (40.0-70.0); PLATELET COUNT (AUTO) 209 K/uL (150-450); RED BLOOD CELL COUNT(AUTO) 4.98 MIL/uL (4.50-5.90); RED CELL DISTRIBUTION WIDTH 13.2 % (11.5-14.5)
[2021-02-27 09:53] LABS: HEMOGLOBIN A1C 5.1 % (3.8-5.6)
[2021-02-27 09:56] LABS: B-TYPE NATRIURETIC PEPTIDE < 5 pg/mL (0-100)
[2021-02-27 10:10] LABS: ALANINE AMINOTRANSFERASE 43 U/L (12-78); ALBUMIN 3.8 g/dL (3.4-5.0); ALKALINE PHOSPHATASE 78 U/L (46-116); ANION GAP 5 mmol/L (8-16); ASPARTATE AMINOTRANSFERASE 34 U/L (15-37); BILIRUBIN,TOTAL 1.9 mg/dL (0.1-1.0); CARBON DIOXIDE 32 mmol/L (22-29); CHLORIDE 105 mmol/L (98-107); CHOL/HDL RATIO 3.5 (4.2-7.3); CHOLESTEROL 219 mg/dL (131-200); CREATININE 1.05 mg/dL (0.60-1.30); GLOMERULAR FILTR. RATE CALC > 60 mL/min (>60); GLUCOSE,RANDOM 130 mg/dL (70-110); HDL CHOLESTEROL 62 mg/dL (40-60); LDL CHOL (CALC.) 139 mg/dL (0-130); POTASSIUM 4.1 mmol/L (3.5-5.1); SODIUM SERUM 142 mmol/L (136-145); THYROID STIMULATING HORMONE 0.82 uIU/mL (0.36-3.74); TOTAL PROTEIN, SERUM 7.6 g/dL (6.4-8.2); TRIGLYCERIDES 91 mg/dL (15-150); UREA NITROGEN, BLOOD 15 mg/dL (7-18)
== END | disposition home or self-care (01) ==
LOC: LABPV 07:11
PROVIDERS: ATTEND Internal Medicine Cardiovascular Disease
DX: I50.9 Heart failure, unspecified (principal); E11.9 Type 2 diabetes mellitus without complications
CPT/HCPCS: 80053; 80061; 82306; 83036; 83735; 83880; 84439; 84443; 84481; 85025

== ENCOUNTER → 2021-05-03 | Outpatient (CLI) | payer OTHER ==
[2021-05-03 11:01] LABS: BASOPHILS % (AUTO) 0.7 % (0.0-2.0); EOSINOPHILS % (AUTO) 8.7 % (1.0-6.0); HEMATOCRIT 43.4 % (41-53); HEMOGLOBIN 14.8 g/dL (13.5-17.5); LYMPHOCYTES # (AUTO) 1.6 K/uL (1.0-4.8); LYMPHOCYTES % (AUTO) 32.1 % (22.0-44.0); MEAN CORPUSCULAR HEMOGLOBIN 30.9 pg (26.0-34.0); MEAN CORPUSCULAR HGB CONC 34.1 G/dL (31.0-37.0); MEAN CORPUSCULAR VOLUME 91 fL (80-100); MONOCYTES # (AUTO) 0.3 K/uL (0.1-1.0); MONOCYTES % (AUTO) 6.3 % (2.0-9.0); NEUTROPHILS # (AUTO) 2.6 K/uL (1.8-7.7); NEUTROPHILS % (AUTO) 52.2 % (40.0-70.0); PLATELET COUNT (AUTO) 244 K/uL (150-450); RED BLOOD CELL COUNT(AUTO) 4.78 MIL/uL (4.50-5.90); RED CELL DISTRIBUTION WIDTH 13.2 % (11.5-14.5)
[2021-05-03 11:17] LABS: B-TYPE NATRIURETIC PEPTIDE 6 pg/mL (0-100)
[2021-05-03 11:28] LABS: ALANINE AMINOTRANSFERASE 20 U/L (12-78); ALBUMIN 3.7 g/dL (3.4-5.0); ALKALINE PHOSPHATASE 83 U/L (46-116); ANION GAP 2 mmol/L (8-16); ASPARTATE AMINOTRANSFERASE 17 U/L (15-37); BILIRUBIN,TOTAL 1.7 mg/dL (0.1-1.0); CALCIUM, TOTAL 8.7 mg/dL (8.8-10.5); CARBON DIOXIDE 29 mmol/L (22-29); CHLORIDE 106 mmol/L (98-107); CHOL/HDL RATIO 4.1 (4.2-7.3); CHOLESTEROL 199 mg/dL (131-200); CREATININE 1.08 mg/dL (0.60-1.30); FREE T4 (FREE THYROXINE) 1.15 ng/dL (0.76-1.46); GLOMERULAR FILTR. RATE CALC > 60 mL/min (>60); GLUCOSE,RANDOM 140 mg/dL (70-110); HDL CHOLESTEROL 49 mg/dL (40-60); LDL CHOL (CALC.) 133 mg/dL (0-130); POTASSIUM 3.7 mmol/L (3.5-5.1); SODIUM SERUM 137 mmol/L (136-145); TOTAL PROTEIN, SERUM 7.6 g/dL (6.4-8.2); TRIGLYCERIDES 83 mg/dL (15-150); UREA NITROGEN, BLOOD 10 mg/dL (7-18)
== END | disposition home or self-care (01) ==
LOC: LABPV 07:15
PROVIDERS: ATTEND Internal Medicine
DX: E11.9 Type 2 diabetes mellitus without complications (principal); I50.9 Heart failure, unspecified
CPT/HCPCS: 80053; 80061; 82306; 83036; 83735; 83880; 84154; 84402; 84403; 84439; 84443; 84481; 85025

== ENCOUNTER → 2021-08-12 | Outpatient (CLI) | payer OTHER ==
[2021-08-12 07:41] LABS: BASOPHILS % (AUTO) 1.4 % (0.0-2.0); HEMATOCRIT 43.5 % (41-53); HEMOGLOBIN 14.9 g/dL (13.5-17.5); LYMPHOCYTES # (AUTO) 1.6 K/uL (1.0-4.8); LYMPHOCYTES % (AUTO) 31.4 % (22.0-44.0); MEAN CORPUSCULAR HGB CONC 34.3 G/dL (31.0-37.0); MEAN CORPUSCULAR VOLUME 90 fL (80-100); MONOCYTES # (AUTO) 0.3 K/uL (0.1-1.0); MONOCYTES % (AUTO) 6.5 % (2.0-9.0); NEUTROPHILS # (AUTO) 2.5 K/uL (1.8-7.7); NEUTROPHILS % (AUTO) 49.7 % (40.0-70.0); PLATELET COUNT (AUTO) 223 K/uL (150-450); RED BLOOD CELL COUNT(AUTO) 4.83 MIL/uL (4.50-5.90); RED CELL DISTRIBUTION WIDTH 13.3 % (11.5-14.5)
[2021-08-12 07:49] LABS: HEMOGLOBIN A1C 5.1 % (3.8-5.6)
[2021-08-12 07:51] LABS: B-TYPE NATRIURETIC PEPTIDE 11 pg/mL (0-100)
[2021-08-12 08:27] LABS: ALANINE AMINOTRANSFERASE 28 U/L (12-78); ALKALINE PHOSPHATASE 77 U/L (46-116); ASPARTATE AMINOTRANSFERASE 21 U/L (15-37); BILIRUBIN,TOTAL 0.8 mg/dL (0.1-1.0); CALCIUM, TOTAL 8.5 mg/dL (8.8-10.5); CARBON DIOXIDE 28 mmol/L (22-29); CHLORIDE 102 mmol/L (98-107); CHOL/HDL RATIO 2.4 (4.2-7.3); CHOLESTEROL 153 mg/dL (131-200); CREATININE 1.09 mg/dL (0.60-1.30); FREE T4 (FREE THYROXINE) 1.13 ng/dL (0.76-1.46); GLOMERULAR FILTR. RATE CALC > 60 mL/min (>60); GLUCOSE,RANDOM 108 mg/dL (70-110); HDL CHOLESTEROL 65 mg/dL (40-60); LDL CHOL (CALC.) 80 mg/dL (0-130); THYROID STIMULATING HORMONE 1.33 uIU/mL (0.36-3.74); TOTAL PROTEIN, SERUM 7.7 g/dL (6.4-8.2); TRIGLYCERIDES 40 mg/dL (15-150); UREA NITROGEN, BLOOD 15 mg/dL (7-18)
[2021-08-12 08:36] LABS: PROSTATE SPECIFIC ANTIGEN 1.29 ng/mL (0.00-4.00)
[2021-08-12 15:33] LABS: ANION GAP 13 mmol/L (8-16); POTASSIUM 3.7 mmol/L (3.5-5.1); SODIUM SERUM 143 mmol/L (136-145)
== END | disposition home or self-care (01) ==
LOC: LABPV 07:06
PROVIDERS: ATTEND Internal Medicine Cardiovascular Disease
DX: I50.9 Heart failure, unspecified (principal); E11.9 Type 2 diabetes mellitus without complications
CPT/HCPCS: 80053; 80061; 82306; 83036; 83735; 83880; 84153; 84154; 84439; 84443; 84481; 85025

== ENCOUNTER 2021-10-15 12:52 | Emergency (ER) | payer OTHER ==
[~2021-10-15] VITALS: Ht 177.8 cm; Wt 75.0 kg
[2021-10-15 14:08] VITALS: BP 118/67
== END 2021-10-15 14:45 | disposition home or self-care (01) ==
LOC: EMS 12:52
DX: S60.051A Contusion of right little finger without damage to nail, initial encounter (principal); E78.00 Pure hypercholesterolemia, unspecified; F10.20 Alcohol dependence, uncomplicated; W19.XXXA Unspecified fall, initial encounter; Y93.89 Activity, other specified; Y92.89 Other specified places as the place of occurrence of the external cause; Y99.8 Other external cause status
CPT/HCPCS: 99283

== ENCOUNTER → 2022-02-10 | Outpatient (CLI) | payer OTHER ==
[2022-02-10 07:47] LABS: BASOPHILS % (AUTO) 0.7 % (0.0-2.0); EOSINOPHILS % (AUTO) 10.6 % (1.0-6.0); HEMOGLOBIN 15.5 g/dL (13.5-17.5); LYMPHOCYTES # (AUTO) 1.6 K/uL (1.0-4.8); LYMPHOCYTES % (AUTO) 33.4 % (22.0-44.0); MEAN CORPUSCULAR HEMOGLOBIN 31.1 pg (26.0-34.0); MEAN CORPUSCULAR HGB CONC 33.6 G/dL (31.0-37.0); MEAN CORPUSCULAR VOLUME 93 fL (80-100); MONOCYTES # (AUTO) 0.4 K/uL (0.1-1.0); MONOCYTES % (AUTO) 8.2 % (2.0-9.0); NEUTROPHILS # (AUTO) 2.2 K/uL (1.8-7.7); NEUTROPHILS % (AUTO) 47.1 % (40.0-70.0); PLATELET COUNT (AUTO) 226 K/uL (150-450); RED BLOOD CELL COUNT(AUTO) 4.97 MIL/uL (4.50-5.90); RED CELL DISTRIBUTION WIDTH 13.2 % (11.5-14.5)
[2022-02-10 07:55] LABS: ALANINE AMINOTRANSFERASE 28 U/L (12-78); ALBUMIN 3.8 g/dL (3.4-5.0); ALKALINE PHOSPHATASE 79 U/L (46-116); ANION GAP 3 mmol/L (8-16); ASPARTATE AMINOTRANSFERASE 23 U/L (15-37); BILIRUBIN,TOTAL 1.3 mg/dL (0.1-1.0); CALCIUM, TOTAL 8.8 mg/dL (8.8-10.5); CARBON DIOXIDE 31 mmol/L (22-29); CHLORIDE 104 mmol/L (98-107); CHOL/HDL RATIO 3.2 (4.2-7.3); CHOLESTEROL 190 mg/dL (131-200); CREATININE 1.03 mg/dL (0.60-1.30); GLOMERULAR FILTR. RATE CALC > 60 mL/min (>60); GLUCOSE,RANDOM 112 mg/dL (70-110); HDL CHOLESTEROL 60 mg/dL (40-60); LDL CHOL (CALC.) 116 mg/dL (0-130); POTASSIUM 4.1 mmol/L (3.5-5.1); SODIUM SERUM 138 mmol/L (136-145); THYROID STIMULATING HORMONE 1.08 uIU/mL (0.36-3.74); TOTAL PROTEIN, SERUM 7.6 g/dL (6.4-8.2); TRIGLYCERIDES 72 mg/dL (15-150); UREA NITROGEN, BLOOD 12 mg/dL (7-18)
[2022-02-10 08:03] LABS: B-TYPE NATRIURETIC PEPTIDE 13 pg/mL (0-100)
== END | disposition home or self-care (01) ==
LOC: LABMN 07:08
PROVIDERS: ATTEND Internal Medicine Cardiovascular Disease
DX: I11.0 Hypertensive heart disease with heart failure (principal); I50.9 Heart failure, unspecified; E11.8 Type 2 diabetes mellitus with unspecified complications; D56.5 Hemoglobin E-beta thalassemia; E55.9 Vitamin D deficiency, unspecified
CPT/HCPCS: 80053; 80061; 82306; 83036; 83735; 83880; 84443; 85025

== ENCOUNTER → 2022-04-21 | Outpatient (CLI) | payer OTHER ==
[2022-04-21 08:13] LABS: BASOPHILS % (AUTO) 0.8 % (0.0-2.0); EOSINOPHILS % (AUTO) 11.9 % (1.0-6.0); HEMATOCRIT 46.1 % (41-53); HEMOGLOBIN 15.5 g/dL (13.5-17.5); LYMPHOCYTES # (AUTO) 1.4 K/uL (1.0-4.8); LYMPHOCYTES % (AUTO) 30.8 % (22.0-44.0); MEAN CORPUSCULAR HEMOGLOBIN 31.2 pg (26.0-34.0); MEAN CORPUSCULAR HGB CONC 33.6 G/dL (31.0-37.0); MEAN CORPUSCULAR VOLUME 93 fL (80-100); MONOCYTES # (AUTO) 0.3 K/uL (0.1-1.0); MONOCYTES % (AUTO) 7.4 % (2.0-9.0); NEUTROPHILS # (AUTO) 2.2 K/uL (1.8-7.7); NEUTROPHILS % (AUTO) 49.1 % (40.0-70.0); PLATELET COUNT (AUTO) 228 K/uL (150-450); RED BLOOD CELL COUNT(AUTO) 4.97 MIL/uL (4.50-5.90); RED CELL DISTRIBUTION WIDTH 13.5 % (11.5-14.5)
[2022-04-21 08:21] LABS: HEMOGLOBIN A1C 5.1 % (3.8-5.6)
[2022-04-21 08:24] LABS: B-TYPE NATRIURETIC PEPTIDE 8 pg/mL (0-100)
[2022-04-21 08:35] LABS: ALANINE AMINOTRANSFERASE 27 U/L (12-78); ALBUMIN 3.8 g/dL (3.4-5.0); ALKALINE PHOSPHATASE 76 U/L (46-116); ANION GAP 6 mmol/L (8-16); ASPARTATE AMINOTRANSFERASE 23 U/L (15-37); BILIRUBIN,TOTAL 1.5 mg/dL (0.1-1.0); CALCIUM, TOTAL 8.5 mg/dL (8.8-10.5); CARBON DIOXIDE 30 mmol/L (22-29); CHLORIDE 103 mmol/L (98-107); CHOL/HDL RATIO 3.1 (4.2-7.3); CHOLESTEROL 213 mg/dL (131-200); CREATININE 0.91 mg/dL (0.60-1.30); FREE T4 (FREE THYROXINE) 1.14 ng/dL (0.76-1.46); GLOMERULAR FILTR. RATE CALC > 60 mL/min (>60); GLUCOSE,RANDOM 99 mg/dL (70-110); HDL CHOLESTEROL 69 mg/dL (40-60); LDL CHOL (CALC.) 130 mg/dL (0-130); SODIUM SERUM 139 mmol/L (136-145); THYROID STIMULATING HORMONE 0.99 uIU/mL (0.36-3.74); TOTAL PROTEIN, SERUM 7.7 g/dL (6.4-8.2); TRIGLYCERIDES 68 mg/dL (15-150); UREA NITROGEN, BLOOD 12 mg/dL (7-18)
== END | disposition home or self-care (01) ==
LOC: LABMN 07:37
PROVIDERS: ATTEND Internal Medicine Cardiovascular Disease
DX: I11.0 Hypertensive heart disease with heart failure (principal); I50.9 Heart failure, unspecified; E11.8 Type 2 diabetes mellitus with unspecified complications; E78.00 Pure hypercholesterolemia, unspecified; E55.9 Vitamin D deficiency, unspecified; D56.5 Hemoglobin E-beta thalassemia
CPT/HCPCS: 80053; 80061; 82306; 83036; 83735; 83880; 84439; 84443; 84480; 85025

== ENCOUNTER → 2022-07-22 | Outpatient (CLI) | payer OTHER ==
[2022-07-22 08:04] LABS: HEMOGLOBIN A1C 5.2 % (3.8-5.6)
[2022-07-22 08:07] LABS: EOSINOPHILS % (AUTO) 7.3 % (1.0-6.0); HEMATOCRIT 47.4 % (41-53); HEMOGLOBIN 15.7 g/dL (13.5-17.5); LYMPHOCYTES # (AUTO) 1.7 K/uL (1.0-4.8); LYMPHOCYTES % (AUTO) 33.9 % (22.0-44.0); MEAN CORPUSCULAR HEMOGLOBIN 31.2 pg (26.0-34.0); MEAN CORPUSCULAR HGB CONC 33.2 G/dL (31.0-37.0); MEAN CORPUSCULAR VOLUME 94 fL (80-100); MONOCYTES # (AUTO) 0.4 K/uL (0.1-1.0); MONOCYTES % (AUTO) 7.4 % (2.0-9.0); NEUTROPHILS # (AUTO) 2.4 K/uL (1.8-7.7); NEUTROPHILS % (AUTO) 49.4 % (40.0-70.0); PLATELET COUNT (AUTO) 191 K/uL (150-450); RED BLOOD CELL COUNT(AUTO) 5.05 MIL/uL (4.50-5.90); RED CELL DISTRIBUTION WIDTH 13.2 % (11.5-14.5)
[2022-07-22 08:13] LABS: B-TYPE NATRIURETIC PEPTIDE 8 pg/mL (0-100)
[2022-07-22 08:19] LABS: ALANINE AMINOTRANSFERASE 29 U/L (12-78); ALBUMIN 4.1 g/dL (3.4-5.0); ALKALINE PHOSPHATASE 94 U/L (46-116); ANION GAP 10 mmol/L (8-16); ASPARTATE AMINOTRANSFERASE 25 U/L (15-37); BILIRUBIN,TOTAL 1.9 mg/dL (0.1-1.0); CALCIUM, TOTAL 8.9 mg/dL (8.8-10.5); CARBON DIOXIDE 29 mmol/L (22-29); CHLORIDE 105 mmol/L (98-107); CHOL/HDL RATIO 3.2 (4.2-7.3); CHOLESTEROL 235 mg/dL (131-200); CREATININE 1.01 mg/dL (0.60-1.30); GLOMERULAR FILTR. RATE CALC > 60 mL/min (>60); GLUCOSE,RANDOM 110 mg/dL (70-110); HDL CHOLESTEROL 73 mg/dL (40-60); POTASSIUM 4.1 mmol/L (3.5-5.1); SODIUM SERUM 144 mmol/L (136-145); TOTAL PROTEIN, SERUM 8.1 g/dL (6.4-8.2); TRIGLYCERIDES 59 mg/dL (15-150); UREA NITROGEN, BLOOD 12 mg/dL (7-18)
[2022-07-22 08:20] LABS: FREE T4 (FREE THYROXINE) 1.08 ng/dL (0.76-1.46); LDL CHOL (CALC.) 150 mg/dL (0-130); THYROID STIMULATING HORMONE 0.74 uIU/mL (0.36-3.74)
== END | disposition home or self-care (01) ==
LOC: LABMN 07:31
PROVIDERS: ATTEND Internal Medicine Cardiovascular Disease
DX: I11.0 Hypertensive heart disease with heart failure (principal); I50.9 Heart failure, unspecified; D56.5 Hemoglobin E-beta thalassemia; E11.8 Type 2 diabetes mellitus with unspecified complications; E78.00 Pure hypercholesterolemia, unspecified; E55.9 Vitamin D deficiency, unspecified
CPT/HCPCS: 80053; 80061; 82306; 83036; 83735; 83880; 84439; 84443; 84480; 85025

== ENCOUNTER → 2022-08-19 | Outpatient (CLI) | payer OTHER ==
[2022-08-19 08:51] LABS: ALANINE AMINOTRANSFERASE 34 U/L (12-78); ALBUMIN 3.8 g/dL (3.4-5.0); ALKALINE PHOSPHATASE 84 U/L (46-116); ANION GAP 7 mmol/L (8-16); ASPARTATE AMINOTRANSFERASE 26 U/L (15-37); BILIRUBIN,TOTAL 1.4 mg/dL (0.1-1.0); CALCIUM, TOTAL 8.9 mg/dL (8.8-10.5); CARBON DIOXIDE 30 mmol/L (22-29); CHLORIDE 104 mmol/L (98-107); CHOL/HDL RATIO 3.1 (4.2-7.3); CHOLESTEROL 210 mg/dL (131-200); CREATININE 0.94 mg/dL (0.60-1.30); GLOMERULAR FILTR. RATE CALC > 60 mL/min (>60); GLUCOSE,RANDOM 106 mg/dL (70-110); HDL CHOLESTEROL 67 mg/dL (40-60); LDL CHOL (CALC.) 129 mg/dL (0-130); POTASSIUM 4.5 mmol/L (3.5-5.1); SODIUM SERUM 141 mmol/L (136-145); TOTAL PROTEIN, SERUM 7.7 g/dL (6.4-8.2); TRIGLYCERIDES 69 mg/dL (15-150)
== END | disposition home or self-care (01) ==
LOC: LABMN 08:13
PROVIDERS: ATTEND Internal Medicine Cardiovascular Disease
DX: I50.9 Heart failure, unspecified (principal); E11.9 Type 2 diabetes mellitus without complications
CPT/HCPCS: 80053; 80061

== ENCOUNTER → 2022-10-17 | Outpatient (CLI) | payer OTHER ==
[2022-10-17 08:05] LABS: BASOPHILS % (AUTO) 0.2 % (0.0-2.0); EOSINOPHILS % (AUTO) 3.9 % (1.0-6.0); HEMATOCRIT 47.3 % (41-53); HEMOGLOBIN 15.6 g/dL (13.5-17.5); LYMPHOCYTES # (AUTO) 1.4 K/uL (1.0-4.8); LYMPHOCYTES % (AUTO) 24.9 % (22.0-44.0); MEAN CORPUSCULAR HEMOGLOBIN 30.6 pg (26.0-34.0); MEAN CORPUSCULAR VOLUME 93 fL (80-100); MONOCYTES # (AUTO) 0.3 K/uL (0.1-1.0); MONOCYTES % (AUTO) 5.7 % (2.0-9.0); NEUTROPHILS # (AUTO) 3.6 K/uL (1.8-7.7); NEUTROPHILS % (AUTO) 65.3 % (40.0-70.0); PLATELET COUNT (AUTO) 246 K/uL (150-450); RED CELL DISTRIBUTION WIDTH 13.4 % (11.5-14.5)
[2022-10-17 08:26] LABS: HEMOGLOBIN A1C 4.8 % (3.8-5.6)
[2022-10-17 08:32] LABS: ALANINE AMINOTRANSFERASE 42 U/L (12-78); ALBUMIN 3.7 g/dL (3.4-5.0); ALKALINE PHOSPHATASE 94 U/L (46-116); ANION GAP 7 mmol/L (8-16); ASPARTATE AMINOTRANSFERASE 26 U/L (15-37); BILIRUBIN,TOTAL 1.1 mg/dL (0.1-1.0); CALCIUM, TOTAL 9.2 mg/dL (8.8-10.5); CARBON DIOXIDE 31 mmol/L (22-29); CHLORIDE 100 mmol/L (98-107); CHOLESTEROL 202 mg/dL (131-200); CREATININE 1.01 mg/dL (0.60-1.30); GLOMERULAR FILTR. RATE CALC > 60 mL/min (>60); GLUCOSE,RANDOM 131 mg/dL (70-110); HDL CHOLESTEROL 67 mg/dL (40-60); LDL CHOL (CALC.) 120 mg/dL (0-130); SODIUM SERUM 138 mmol/L (136-145); THYROID STIMULATING HORMONE 1.14 uIU/mL (0.36-3.74); TRIGLYCERIDES 74 mg/dL (15-150)
[2022-10-17 08:33] LABS: B-TYPE NATRIURETIC PEPTIDE < 5 pg/mL (0-100)
== END | disposition home or self-care (01) ==
LOC: LABMN 07:38
PROVIDERS: ATTEND Internal Medicine Cardiovascular Disease
DX: I11.0 Hypertensive heart disease with heart failure (principal); I50.9 Heart failure, unspecified; E11.8 Type 2 diabetes mellitus with unspecified complications; E55.9 Vitamin D deficiency, unspecified; D56.5 Hemoglobin E-beta thalassemia; E78.00 Pure hypercholesterolemia, unspecified
CPT/HCPCS: 80053; 80061; 82306; 83036; 83735; 83880; 84439; 84443; 84480; 85025

== ENCOUNTER → 2022-12-23 | Outpatient (CLI) | payer OTHER | END | disposition home or self-care (01) | LOC: RADPV 08:11 | PROVIDERS: ATTEND Internal Medicine | DX: R17 Unspecified jaundice (principal) | CPT/HCPCS: 76700 ==

== ENCOUNTER → 2023-02-04 | Outpatient (CLI) | payer OTHER ==
[2023-02-04 10:48] LABS: BASOPHILS % (AUTO) 0.6 % (0.0-2.0); EOSINOPHILS % (AUTO) 11.8 % (1.0-6.0); HEMATOCRIT 45.7 % (41-53); HEMOGLOBIN 15.3 g/dL (13.5-17.5); LYMPHOCYTES # (AUTO) 1.6 K/uL (1.0-4.8); LYMPHOCYTES % (AUTO) 35.2 % (22.0-44.0); MEAN CORPUSCULAR HEMOGLOBIN 30.9 pg (26.0-34.0); MEAN CORPUSCULAR HGB CONC 33.5 G/dL (31.0-37.0); MEAN CORPUSCULAR VOLUME 92 fL (80-100); MONOCYTES # (AUTO) 0.4 K/uL (0.1-1.0); MONOCYTES % (AUTO) 7.7 % (2.0-9.0); NEUTROPHILS % (AUTO) 44.7 % (40.0-70.0); PLATELET COUNT (AUTO) 224 K/uL (150-450); RED BLOOD CELL COUNT(AUTO) 4.96 MIL/uL (4.50-5.90); RED CELL DISTRIBUTION WIDTH 13.5 % (11.5-14.5); WHITE BLOOD COUNT (AUTO) 4.6 K/uL (4.5-11.0)
[2023-02-04 11:01] LABS: B-TYPE NATRIURETIC PEPTIDE 8 pg/mL (0-100)
[2023-02-04 11:18] LABS: ALANINE AMINOTRANSFERASE 30 U/L (12-78); ALBUMIN 3.8 g/dL (3.4-5.0); ALKALINE PHOSPHATASE 99 U/L (46-116); ANION GAP 4 mmol/L (8-16); ASPARTATE AMINOTRANSFERASE 23 U/L (15-37); BILIRUBIN,TOTAL 1.5 mg/dL (0.1-1.0); CALCIUM, TOTAL 9.3 mg/dL (8.8-10.5); CARBON DIOXIDE 32 mmol/L (22-29); CHLORIDE 103 mmol/L (98-107); CHOL/HDL RATIO 3.7 (4.2-7.3); CHOLESTEROL 214 mg/dL (131-200); FREE T4 (FREE THYROXINE) 1.04 ng/dL (0.76-1.46); GLOMERULAR FILTR. RATE CALC > 60 mL/min (>60); GLUCOSE,RANDOM 93 mg/dL (70-110); HDL CHOLESTEROL 58 mg/dL (40-60); LDL CHOL (CALC.) 144 mg/dL (0-130); SODIUM SERUM 139 mmol/L (136-145); THYROID STIMULATING HORMONE 1.14 uIU/mL (0.36-3.74); TOTAL PROTEIN, SERUM 8.2 g/dL (6.4-8.2); TRIGLYCERIDES 61 mg/dL (15-150); UREA NITROGEN, BLOOD 11 mg/dL (7-18)
== END | disposition home or self-care (01) ==
LOC: LABMN 10:12
PROVIDERS: ATTEND Internal Medicine
DX: I11.0 Hypertensive heart disease with heart failure (principal); E11.8 Type 2 diabetes mellitus with unspecified complications; I50.9 Heart failure, unspecified; E55.9 Vitamin D deficiency, unspecified
CPT/HCPCS: 80053; 80061; 82306; 83036; 83735; 83880; 84439; 84443; 84480; 85025

== ENCOUNTER → 2023-06-12 | Outpatient (CLI) | payer OTHER ==
[2023-06-12 08:02] LABS: BASOPHILS % (AUTO) 0.5 % (0.0-2.0); EOSINOPHILS % (AUTO) 10.6 % (1.0-6.0); HEMATOCRIT 45.2 % (41-53); HEMOGLOBIN 15.5 g/dL (13.5-17.5); LYMPHOCYTES # (AUTO) 1.6 K/uL (1.0-4.8); MEAN CORPUSCULAR HEMOGLOBIN 31.6 pg (26.0-34.0); MEAN CORPUSCULAR HGB CONC 34.2 G/dL (31.0-37.0); MEAN CORPUSCULAR VOLUME 93 fL (80-100); MONOCYTES # (AUTO) 0.4 K/uL (0.1-1.0); MONOCYTES % (AUTO) 7.3 % (2.0-9.0); NEUTROPHILS # (AUTO) 2.4 K/uL (1.8-7.7); NEUTROPHILS % (AUTO) 48.6 % (40.0-70.0); PLATELET COUNT (AUTO) 201 K/uL (150-450); RED BLOOD CELL COUNT(AUTO) 4.89 MIL/uL (4.50-5.90); RED CELL DISTRIBUTION WIDTH 13.2 % (11.5-14.5); WHITE BLOOD COUNT (AUTO) 4.8 K/uL (4.5-11.0)
[2023-06-12 08:08] LABS: HEMOGLOBIN A1C 5.2 % (3.8-5.6)
[2023-06-12 08:21] LABS: B-TYPE NATRIURETIC PEPTIDE 18 pg/mL (0-100)
[2023-06-12 08:25] LABS: ALANINE AMINOTRANSFERASE 32 U/L (12-78); ALBUMIN 3.6 g/dL (3.4-5.0); ALKALINE PHOSPHATASE 84 U/L (46-116); ANION GAP 7 mmol/L (8-16); ASPARTATE AMINOTRANSFERASE 29 U/L (15-37); BILIRUBIN,TOTAL 1.7 mg/dL (0.1-1.0); CARBON DIOXIDE 31 mmol/L (22-29); CHLORIDE 101 mmol/L (98-107); CHOL/HDL RATIO 3.3 (4.2-7.3); CHOLESTEROL 201 mg/dL (131-200); FREE T4 (FREE THYROXINE) 1.01 ng/dL (0.76-1.46); GLOMERULAR FILTR. RATE CALC > 60 mL/min (>60); GLUCOSE,RANDOM 127 mg/dL (70-110); HDL CHOLESTEROL 61 mg/dL (40-60); LDL CHOL (CALC.) 124 mg/dL (0-130); POTASSIUM 3.7 mmol/L (3.5-5.1); SODIUM SERUM 139 mmol/L (136-145); THYROID STIMULATING HORMONE 1.05 uIU/mL (0.36-3.74); TOTAL PROTEIN, SERUM 7.7 g/dL (6.4-8.2); TRIGLYCERIDES 78 mg/dL (15-150); UREA NITROGEN, BLOOD 12 mg/dL (7-18)
== END | disposition home or self-care (01) ==
LOC: LABMN 07:07
PROVIDERS: ATTEND Internal Medicine Cardiovascular Disease
DX: I11.0 Hypertensive heart disease with heart failure (principal); E11.8 Type 2 diabetes mellitus with unspecified complications; I50.9 Heart failure, unspecified; E55.9 Vitamin D deficiency, unspecified
CPT/HCPCS: 80053; 80061; 82306; 83036; 83735; 83880; 84439; 84443; 84480; 85025

== ENCOUNTER 2023-09-29 10:31 | Emergency (ER) | payer OTHER ==
[~2023-09-29] VITALS: Ht 177.8 cm; Wt 75.0 kg
[2023-09-29] MEDS ORDERED: ASPI-1522 PO (11:53)
[2023-09-29] MEDS ORDERED: NITR0.4T50 SL (11:53)
[2023-09-29] MEDS ORDERED: METO-408 PO (11:53)
[2023-09-29] MEDS: IBUPROFEN 400 MG TABLET PO ONE (12:31)
[2023-09-29 13:57] LABS: BASOPHILS % (AUTO) 0.9 % (0.0-2.0); EOSINOPHILS % (AUTO) 5.2 % (1.0-6.0); HEMATOCRIT 46.5 % (41-53); HEMOGLOBIN 15.4 g/dL (13.5-17.5); LYMPHOCYTES # (AUTO) 1.7 K/uL (1.0-4.8); LYMPHOCYTES % (AUTO) 31.2 % (22.0-44.0); MEAN CORPUSCULAR HEMOGLOBIN 31.1 pg (26.0-34.0); MEAN CORPUSCULAR HGB CONC 33.2 G/dL (31.0-37.0); MEAN CORPUSCULAR VOLUME 94 fL (80-100); MONOCYTES # (AUTO) 0.4 K/uL (0.1-1.0); MONOCYTES % (AUTO) 6.7 % (2.0-9.0); PLATELET COUNT (AUTO) 235 K/uL (150-450); RED BLOOD CELL COUNT(AUTO) 4.96 MIL/uL (4.50-5.90); RED CELL DISTRIBUTION WIDTH 13.7 % (11.5-14.5); WHITE BLOOD COUNT (AUTO) 5.4 K/uL (4.5-11.0)
[2023-09-29 14:05] LABS: ANION GAP 1 mmol/L (8-16); CARBON DIOXIDE 33 mmol/L (22-29); CHLORIDE 103 mmol/L (98-107); CREATININE 0.98 mg/dL (0.60-1.30); GLOMERULAR FILTR. RATE CALC > 60 mL/min (>60); GLUCOSE,RANDOM 139 mg/dL (70-110); POTASSIUM 4.4 mmol/L (3.5-5.1); SODIUM SERUM 137 mmol/L (136-145); UREA NITROGEN, BLOOD 10 mg/dL (7-18)
[2023-09-29 14:10] LABS: ALANINE AMINOTRANSFERASE 41 U/L (12-78); ALBUMIN 3.7 g/dL (3.4-5.0); ALKALINE PHOSPHATASE 80 U/L (46-116); ASPARTATE AMINOTRANSFERASE 36 U/L (15-37); BILIRUBIN,TOTAL 1.6 mg/dL (0.1-1.0); TOTAL PROTEIN, SERUM 7.8 g/dL (6.4-8.2)
[2023-09-29] MEDS: EMTRICITABINE/TENOFOVIR 200-300 MG TABLET PO ONE (14:34)
[2023-09-29] MEDS: RALTEGRAVIR 400 MG TABLET PO ONE (14:34)
[2023-09-29] MEDS: BACITRACIN 0.9 GM PACKET OINTMENT TP ONE (14:35)
[2023-09-29] MEDS ORDERED: RALT400T PO (15:10)
[2023-09-29] MEDS ORDERED: EMTR1TAB53 PO (15:10)
[2023-09-29] MEDS ORDERED: CEPH-558 PO (15:11)
[2023-09-29 15:48] VITALS: BP 118/79; PULSE 68; RESP 16; TEMP 98.7
[2023-09-30 09:07] LABS: HIV 1-2 SCREEN 4TH GEN W/RFLX Non Reactive (Non Reactive)
[2023-09-30 12:06] LABS: HEPATITIS C AB (EIA) Non Reactive (Non Reactive)
== END 2023-09-29 15:51 | disposition home or self-care (01) ==
LOC: EMS 10:34
DX: S61.011A Laceration without foreign body of right thumb without damage to nail, initial encounter (principal); Y08.89XA Assault by other specified means, initial encounter; Y93.89 Activity, other specified; Y92.89 Other specified places as the place of occurrence of the external cause; Y99.8 Other external cause status
CPT/HCPCS: 29105; 80053; 85025; 86706; 86803; 87340; 87389; 99284

== ENCOUNTER 2023-10-19 10:10 | Emergency (ER) | payer OTHER ==
[~2023-10-19] VITALS: Ht 175.3 cm; Wt 70.5 kg
[~2023-10-19 10:10] MED LIST changes: +ASPI-1522 PO; +CEPH-558 PO; +EMTR1TAB53 PO; +METO-408 PO; +NITR0.4T50 SL; +RALT400T PO; -ROSU5TAB PO
[2023-10-19 10:23] VITALS: BP 128/83; PULSE 74; RESP 18; TEMP 98
[2023-10-19] MEDS: METHOCARBAMOL 500 MG TABLET PO ONE (11:19)
[2023-10-19] MEDS: KETOROLAC TROMETHAMINE 60 MG/2 ML VIAL IM ONE (11:19)
[2023-10-19] MEDS ORDERED: IBUP-1492 PO (11:24)
== END 2023-10-19 11:28 | disposition home or self-care (01) ==
LOC: EMS 10:10
DX: S16.1XXA Strain of muscle, fascia and tendon at neck level, initial encounter (principal); S09.90XA Unspecified injury of head, initial encounter; Y04.0XXA Assault by unarmed brawl or fight, initial encounter; Y93.89 Activity, other specified; Y92.89 Other specified places as the place of occurrence of the external cause; Y99.0 Civilian activity done for income or pay
CPT/HCPCS: 99283; J1885

== ENCOUNTER → 2023-12-14 | Outpatient (CLI) | payer OTHER ==
[~2023-12-14] MED LIST changes: -ASPI-1522 PO; -CEPH-558 PO; -EMTR1TAB53 PO; +IBUP-1492 PO; -METO-408 PO; -NITR0.4T50 SL; -RALT400T PO
[2023-12-14 07:25] LABS: BASOPHILS % (AUTO) 0.5 % (0.0-2.0); EOSINOPHILS % (AUTO) 10.9 % (1.0-6.0); HEMATOCRIT 46.8 % (41-53); HEMOGLOBIN 15.1 g/dL (13.5-17.5); LYMPHOCYTES # (AUTO) 1.9 K/uL (1.0-4.8); LYMPHOCYTES % (AUTO) 42.8 % (22.0-44.0); MEAN CORPUSCULAR HEMOGLOBIN 30.1 pg (26.0-34.0); MEAN CORPUSCULAR HGB CONC 32.4 G/dL (31.0-37.0); MEAN CORPUSCULAR VOLUME 93 fL (80-100); MONOCYTES # (AUTO) 0.3 K/uL (0.1-1.0); MONOCYTES % (AUTO) 7.7 % (2.0-9.0); NEUTROPHILS # (AUTO) 1.6 K/uL (1.8-7.7); NEUTROPHILS % (AUTO) 38.1 % (40.0-70.0); PLATELET COUNT (AUTO) 208 K/uL (150-450); RED BLOOD CELL COUNT(AUTO) 5.03 MIL/uL (4.50-5.90); RED CELL DISTRIBUTION WIDTH 13.3 % (11.5-14.5); WHITE BLOOD COUNT (AUTO) 4.3 K/uL (4.5-11.0)
[2023-12-14 07:48] LABS: ALANINE AMINOTRANSFERASE 27 U/L (12-78); ALBUMIN 3.4 g/dL (3.4-5.0); ALKALINE PHOSPHATASE 75 U/L (46-116); ANION GAP 6 mmol/L (8-16); ASPARTATE AMINOTRANSFERASE 26 U/L (15-37); BILIRUBIN,TOTAL 1.1 mg/dL (0.1-1.0); CARBON DIOXIDE 28 mmol/L (22-29); CHLORIDE 105 mmol/L (98-107); CHOL/HDL RATIO 3.6 (4.2-7.3); CHOLESTEROL 214 mg/dL (131-200); CREATININE 0.98 mg/dL (0.60-1.30); FREE T4 (FREE THYROXINE) 1.01 ng/dL (0.76-1.46); GLOMERULAR FILTR. RATE CALC > 60 mL/min (>60); GLUCOSE,RANDOM 102 mg/dL (70-110); HDL CHOLESTEROL 60 mg/dL (40-60); LDL CHOL (CALC.) 143 mg/dL (0-130); POTASSIUM 4.3 mmol/L (3.5-5.1); SODIUM SERUM 139 mmol/L (136-145); THYROID STIMULATING HORMONE 1.06 uIU/mL (0.36-3.74); TOTAL PROTEIN, SERUM 7.1 g/dL (6.4-8.2); TRIGLYCERIDES 55 mg/dL (15-150); UREA NITROGEN, BLOOD 9 mg/dL (7-18)
[2023-12-14 07:53] LABS: B-TYPE NATRIURETIC PEPTIDE 11 pg/mL (0-100)
[2023-12-14 07:58] LABS: HEMOGLOBIN A1C 5.1 % (3.8-5.6)
== END | disposition home or self-care (01) ==
LOC: LABMN 07:08
PROVIDERS: ATTEND Internal Medicine Cardiovascular Disease
DX: I11.0 Hypertensive heart disease with heart failure (principal); I50.9 Heart failure, unspecified; E11.8 Type 2 diabetes mellitus with unspecified complications; E55.9 Vitamin D deficiency, unspecified
CPT/HCPCS: 80053; 80061; 83036; 83735; 83880; 84439; 84443; 84480; 85025

== ENCOUNTER 2024-01-26 20:12 | Emergency (ER) | payer OTHER ==
[~2024-01-26] VITALS: Ht 177.8 cm; Wt 72.7 kg
[2024-01-26 20:19] VITALS: TEMP 97.9
[2024-01-26] MEDS: PERTUSS(ACELL),DIPH,TET/PF 0.5 ML SYRINGE [ADULT] IM. ONE (20:36)
[2024-01-26] MEDS ORDERED: AMOX-457 PO (21:46)
[2024-01-26] MEDS: AMOX TR/POT CLAV 875 MG/125 MG TABLET PO ONE (21:50)
[2024-01-26] MEDS: BACITRACIN 0.9 GM PACKET OINTMENT TP ONE (21:51)
[2024-01-26 22:38] VITALS: BP 136/73; PULSE 63; RESP 20; O2SAT 100
[2024-01-28 06:07] LABS: HEPATITIS C AB (EIA) Non Reactive (Non Reactive)
== END 2024-01-26 22:41 | disposition home or self-care (01) ==
LOC: EMS 20:12
DX: S40.872A Other superficial bite of left upper arm, initial encounter (principal); E78.00 Pure hypercholesterolemia, unspecified; Z23 Encounter for immunization; Y04.1XXA Assault by human bite, initial encounter; Y93.89 Activity, other specified; Y92.89 Other specified places as the place of occurrence of the external cause; Y99.0 Civilian activity done for income or pay
CPT/HCPCS: 84460; 86706; 86803; 87340; 90471; 90715; 99283

== ENCOUNTER → 2024-03-25 | Outpatient (CLI) | payer OTHER ==
[~2024-03-25] MED LIST changes: +AMOX-457 PO
[2024-03-25 07:42] LABS: HEMATOCRIT 45.7 % (41-53); HEMOGLOBIN 15.5 g/dL (13.5-17.5); MEAN CORPUSCULAR HGB CONC 33.9 G/dL (31.0-37.0); MONOCYTES # (AUTO) 0.4 K/uL (0.1-1.0); NEUTROPHILS # (AUTO) 2.5 K/uL (1.8-7.7); RED BLOOD CELL COUNT(AUTO) 4.89 MIL/uL (4.50-5.90); WHITE BLOOD COUNT (AUTO) 5.3 K/uL (4.5-11.0)
[2024-03-25 08:02] LABS: ALANINE AMINOTRANSFERASE 40 U/L (12-78); ALBUMIN 3.6 g/dL (3.4-5.0); ALKALINE PHOSPHATASE 88 U/L (46-116); ANION GAP 4 mmol/L (8-16); ASPARTATE AMINOTRANSFERASE 28 U/L (15-37); BILIRUBIN,TOTAL 1.3 mg/dL (0.1-1.0); CALCIUM, TOTAL 8.6 mg/dL (8.8-10.5); CARBON DIOXIDE 33 mmol/L (22-29); CHLORIDE 106 mmol/L (98-107); CHOL/HDL RATIO 2.2 (4.2-7.3); CHOLESTEROL 157 mg/dL (131-200); CREATININE 1.09 mg/dL (0.60-1.30); FREE T4 (FREE THYROXINE) 0.95 ng/dL (0.76-1.46); GLOMERULAR FILTR. RATE CALC > 60 mL/min (>60); GLUCOSE,RANDOM 104 mg/dL (70-110); HDL CHOLESTEROL 72 mg/dL (40-60); LDL CHOL (CALC.) 74 mg/dL (0-130); POTASSIUM 4.5 mmol/L (3.5-5.1); SODIUM SERUM 143 mmol/L (136-145); THYROID STIMULATING HORMONE 1.63 uIU/mL (0.36-3.74); TOTAL PROTEIN, SERUM 7.5 g/dL (6.4-8.2); TRIGLYCERIDES 54 mg/dL (15-150); UREA NITROGEN, BLOOD 11 mg/dL (7-18)
[2024-03-25 08:09] LABS: B-TYPE NATRIURETIC PEPTIDE 13 pg/mL (0-100)
[2024-03-25 08:20] LABS: BASOPHILS % (AUTO) 0.5 % (0.0-2.0); EOSINOPHILS % (AUTO) 11.6 % (1.0-6.0); LYMPHOCYTES # (AUTO) 1.8 K/uL (1.0-4.8); MEAN CORPUSCULAR HEMOGLOBIN 31.7 pg (26.0-34.0); MEAN CORPUSCULAR VOLUME 94 fL (80-100); NEUTROPHILS % (AUTO) 46.9 % (40.0-70.0); PLATELET COUNT (AUTO) 212 K/uL (150-450); RED CELL DISTRIBUTION WIDTH 13.5 % (11.5-14.5)
== END | disposition home or self-care (01) ==
LOC: LABMN 07:18
PROVIDERS: ATTEND Internal Medicine Cardiovascular Disease
DX: I11.0 Hypertensive heart disease with heart failure (principal); I50.9 Heart failure, unspecified; E11.8 Type 2 diabetes mellitus with unspecified complications; E55.9 Vitamin D deficiency, unspecified
CPT/HCPCS: 80053; 80061; 83036; 83735; 83880; 84439; 84443; 84480; 85025

== ENCOUNTER 2024-11-30 02:47 | Inpatient (IN) | payer OTHER ==
[~2024-11-30] VITALS: Ht 177.8 cm; Wt 74.8 kg
[2024-11-30 03:05] LABS: PLATELET COUNT (AUTO) 201 K/uL (150-450); RED BLOOD CELL COUNT(AUTO) 4.89 MIL/uL (4.50-5.90); RED CELL DISTRIBUTION WIDTH 13.3 % (11.5-14.5); WHITE BLOOD COUNT (AUTO) 6.8 K/uL (4.5-11.0)
[2024-11-30 03:15] LABS: CALCIUM, TOTAL 8.4 mg/dL (8.8-10.5); CREATININE 1.04 mg/dL (0.60-1.30); GLOMERULAR FILTR. RATE CALC > 60 mL/min (>60); GLUCOSE,RANDOM 107 mg/dL (70-110); SODIUM SERUM 141 mmol/L (136-145); UREA NITROGEN, BLOOD 12 mg/dL (7-18)
[2024-11-30 03:21] LABS: ASPARTATE AMINOTRANSFERASE 30.0 U/L (15-37); TOTAL PROTEIN, SERUM 7.5 g/dL (6.4-8.2)
[2024-11-30] MEDS: SODIUM CHLORIDE 0.9% 1,000 ML IV ONE ×2 (03:31→13:15)
[2024-11-30] MEDS: MORPHINE SULFATE 2 MG/ML SYRINGE IVP ONE ×2 (03:32→06:51)
[2024-11-30] MEDS: FAMOTIDINE 20 MG/2 ML VIAL IVP ONE (03:32)
[2024-11-30] MEDS ORDERED: IOHEXOL 300 MG/ML 100 ML VIAL ONE (03:48)
[2024-11-30] MEDS ORDERED: SODIUM CHLORIDE 0.9% 100 ML ONE (03:48)
[2024-11-30 04:27] LABS: LACTIC ACID 0.7 mmol/L (0.4-2.0)
[2024-11-30] MEDS: PIPERACILLIN/TAZO 3.375 GM/D5W 50 ML IV ONE (06:51)
[2024-11-30 09:18] VITALS: BP 91/59; PULSE 54; RESP 18; TEMP 98.2; O2SAT 99
[2024-11-30] MEDS: ONDANSETRON HCL 4 MG/2 ML VIAL IVP PRN (10:05)
[2024-11-30] MEDS: MORPHINE SULFATE 2 MG/ML SYRINGE IVP PRN ×2 (10:06→14:50)
[2024-11-30 11:08] VITALS: BP 98/68; PULSE 57; RESP 19; TEMP 98.1; O2SAT 99
[2024-11-30] MEDS ORDERED: BISACODYL 10 MG RECTAL RECTAL SUPPOSITORY PR PRN (11:30)
[2024-11-30] MEDS ORDERED: ZOLPIDEM TARTRATE 5 MG TABLET PO PRN (11:30)
[2024-11-30] MEDS ORDERED: ACETAMINOPHEN 325 MG TABLET PO PRN (11:30)
[2024-11-30] MEDS ORDERED: HYDROCODONE/ACETAMINOPHEN 5-325 MG TABLET PO PRN (11:30)
[2024-11-30] MEDS ORDERED: ONDANSETRON HCL 4 MG/2 ML VIAL IVP PRN (11:30)
[2024-11-30] MEDS ORDERED: MAGNESIUM HYDROXIDE SUSPENSION 30 ML UDCUP PO PRN (11:30)
[2024-11-30] MEDS: PIPERACILLIN/TAZO 3.375 GM/D5W 50 ML IV SCH (13:15)
[2024-11-30 15:44] VITALS: BP 100/63; PULSE 63; RESP 18; TEMP 97.9; O2SAT 99
[2024-11-30] MEDS: HEPARIN SODIUM,PORCINE 5,000 UNITS/ML VIAL SQ SCH (16:00)
[2024-11-30] MEDS: DOCUSATE SODIUM 100 MG CAPSULE PO SCH (20:08)
[2024-11-30 20:19] VITALS: BP 105/66; PULSE 63; RESP 18; TEMP 98.4; O2SAT 99
[2024-12-01 00:03] VITALS: BP 96/59; PULSE 64; RESP 18; TEMP 98.1; O2SAT 98
[2024-12-01 04:00] VITALS: BP 102/56; PULSE 65; RESP 17; TEMP 99; O2SAT 96
[2024-12-01 06:31] LABS: PLATELET COUNT (AUTO) 178 K/uL (150-450); RED BLOOD CELL COUNT(AUTO) 4.61 MIL/uL (4.50-5.90); RED CELL DISTRIBUTION WIDTH 13.4 % (11.5-14.5); WHITE BLOOD COUNT (AUTO) 6.2 K/uL (4.5-11.0)
[2024-12-01 06:53] LABS: CALCIUM, TOTAL 7.8 mg/dL (8.8-10.5); CREATININE 0.98 mg/dL (0.60-1.30); GLOMERULAR FILTR. RATE CALC > 60 mL/min (>60); GLUCOSE,RANDOM 76 mg/dL (70-110); SODIUM SERUM 140 mmol/L (136-145); UREA NITROGEN, BLOOD 9 mg/dL (7-18)
[2024-12-01] MEDS: PANTOPRAZOLE SODIUM 40 MG DR TABLET PO SCH (08:18)
[2024-12-01 08:33] VITALS: BP 116/70; PULSE 78; RESP 18; TEMP 98.6; O2SAT 98
[2024-12-01 11:30] VITALS: BP 107/61; PULSE 54; RESP 17; TEMP 98.1; O2SAT 95
[2024-12-01 16:00] VITALS: BP 102/59; PULSE 60; RESP 18; TEMP 98.2; O2SAT 99
[2024-12-01 20:07] VITALS: BP 105/65; PULSE 59; RESP 17; TEMP 97.9; O2SAT 99
[2024-12-01] MEDS: LACTULOSE 20 GM/30 ML SOLUTION UDCUP PO SCH (20:22)
[2024-12-02 00:21] VITALS: BP 101/62; PULSE 53; RESP 18; TEMP 97.7; O2SAT 100
[2024-12-02 06:13] LABS: PLATELET COUNT (AUTO) 179 K/uL (150-450); RED BLOOD CELL COUNT(AUTO) 4.57 MIL/uL (4.50-5.90); RED CELL DISTRIBUTION WIDTH 13.1 % (11.5-14.5); WHITE BLOOD COUNT (AUTO) 6.0 K/uL (4.5-11.0)
[2024-12-02 06:28] LABS: CALCIUM, TOTAL 8.2 mg/dL (8.8-10.5); CREATININE 1.11 mg/dL (0.60-1.30); GLOMERULAR FILTR. RATE CALC > 60 mL/min (>60); GLUCOSE,RANDOM 83 mg/dL (70-110); SODIUM SERUM 141 mmol/L (136-145); UREA NITROGEN, BLOOD 8 mg/dL (7-18)
[2024-12-02 08:14] VITALS: BP 98/66; PULSE 51; RESP 17; TEMP 97.9; O2SAT 97
[2024-12-02] MEDS ORDERED: LACT10SO85 PO (11:46)
[2024-12-02] MEDS ORDERED: METR250 PO (11:46)
[2024-12-02] MEDS ORDERED: DOCU-385 PO (11:46)
[2024-12-02] MEDS ORDERED: ACET-3862 PO (11:46)
[2024-12-02 12:18] VITALS: BP 109/74; PULSE 58; RESP 17; TEMP 97.5; O2SAT 99
== END 2024-12-02 14:30 | disposition home or self-care (01) | DRG 392 ==
LOC: EMS 02:47 → EDBEDREQ 06:26 → EDH 06:49 → UNDOADMIN 06:49 → 5S 09:00
PROVIDERS: ADMIT Internal Medicine; ATTEND Internal Medicine
PROC: 0D9670Z Drainage of Stomach with Drainage Device, Via Natural or Artificial Opening (ICD-10-PCS; principal; 2024-11-30)
DX: A08.4 Viral intestinal infection, unspecified (principal); K56.600 Partial intestinal obstruction, unspecified as to cause; K56.7 Ileus, unspecified; E78.00 Pure hypercholesterolemia, unspecified; Z82.49 Family history of ischemic heart disease and other diseases of the circulatory system; Z83.3 Family history of diabetes mellitus
CPT/HCPCS: 71045; 74018; 74177; 76705; 80048; 80076; 83605; 83690; 85025; 87040; 93005; 99285; J1171; J1644; J2270; J2405; J2543; J3490; J7030; J7050; Q9967; 36415-L1; 36415-TC

== ENCOUNTER 2025-03-25 07:50 | Emergency (ER) | payer OTHER ==
[~2025-03-25] VITALS: Ht 177.8 cm; Wt 75.0 kg
[~2025-03-25 07:50] MED LIST changes: +ACET-3862 PO; -AMOX-457 PO; +DOCU-385 PO; -IBUP-1492 PO; +LACT10SO85 PO; +METR250 PO; -ROSU10TA72 PO; +ROSU10TA98 PO
[2025-03-25 07:53] VITALS: BP 140/71; PULSE 98; RESP 20; TEMP 98.5; O2SAT 97
[2025-03-25] MEDS: IBUPROFEN 600 MG TABLET PO ONE (08:12)
[2025-03-25] MEDS ORDERED: IBUP-1492 PO (08:18)
== END 2025-03-25 08:25 | disposition home or self-care (01) ==
LOC: EMS 07:50
DX: S43.014A Anterior dislocation of right humerus, initial encounter (principal); E78.00 Pure hypercholesterolemia, unspecified; Z79.899 Other long term (current) drug therapy; X58.XXXA Exposure to other specified factors, initial encounter; Y93.67 Activity, basketball; Y92.89 Other specified places as the place of occurrence of the external cause; Y99.8 Other external cause status
CPT/HCPCS: 23650; 99284; 73030-TC; Z7502; Z7610